=== PATIENT | female | born 1945 | race Caucasian/White ===

== ENCOUNTER 2017-06-30 09:47 | Outpatient (CLI) | payer MEDICARE, BC | END 2017-06-30 09:48 | disposition home or self-care (01) | LOC: BICMAMMO 09:47 | PROVIDERS: ATTEND Obstetrics & Gynecology | DX: Z12.31 Encounter for screening mammogram for malignant neoplasm of breast (principal); R92.1 Mammographic calcification found on diagnostic imaging of breast; Z80.3 Family history of malignant neoplasm of breast | CPT/HCPCS: 77063; 77067 ==

== ENCOUNTER 2017-09-13 10:20 | Outpatient (CLI) | payer MEDICARE, BC | END 2017-09-13 10:21 | disposition home or self-care (01) | LOC: BICMAMMO 10:20 | PROVIDERS: ATTEND Obstetrics & Gynecology | DX: Z13.820 Encounter for screening for osteoporosis (principal); M85.80 Other specified disorders of bone density and structure, unspecified site | CPT/HCPCS: 77080 ==

== ENCOUNTER 2018-01-11 13:08 | Outpatient (CLI) | payer MEDICARE, BC | END 2018-01-11 13:09 | disposition home or self-care (01) | PROVIDERS: ATTEND Internal Medicine | DX: I49.9 Cardiac arrhythmia, unspecified (principal) | CPT/HCPCS: 93225; 93226 ==

== ENCOUNTER 2018-07-03 09:05 | Outpatient (CLI) | payer MEDICARE, BC ==
--- NOTE | 2018-07-03 11:55 | MMO ---
Bilateral MAMMO Bilat Screen DDI+ANTONY. CLINICAL HISTORY: Patient is 72 years old and is seen for screening. The patient has the following family history of breast cancer: mother, at age 45. The patient has no personal history of cancer. The patient has a history of left Excisional Biopsy in 1980 - benign. VIEWS: The views performed were: bilateral craniocaudal with tomosynthesis and bilateral mediolateral oblique with tomosynthesis. FILMS COMPARED: The present examination has been compared to prior imaging studies performed at [facility] 01/03/2015, and at [facility] on 06/29/2016 and 06/30/2017. MAMMOGRAM FINDINGS: There are scattered fibroglandular densities. There are stable benign appearing calcifications seen in both breasts. There are also vascular calcifications. There are no suspicious masses, suspicious calcifications, or new areas of architectural distortion. IMPRESSION: THERE IS NO MAMMOGRAPHIC EVIDENCE OF MALIGNANCY. A ROUTINE FOLLOW-UP MAMMOGRAM IN 1 YEAR IS RECOMMENDED. THE RESULTS OF THIS EXAM WERE SENT TO THE PATIENT. ACR BI-RADS Category 2 - Benign finding MAMMOGRAPHY NOTE: 1. A negative mammogram report should not delay a biopsy if a dominant of clinically suspicious mass is present. 2. Approximately 10% to 15% of breast cancers are not detected by mammography. 3. Adenosis and dense breasts may obscure an underlying neoplasm.
== END 2018-07-03 09:06 | disposition home or self-care (01) ==
LOC: BICMAMMO 09:05
PROVIDERS: ATTEND Obstetrics & Gynecology
DX: Z12.31 Encounter for screening mammogram for malignant neoplasm of breast (principal); Z80.3 Family history of malignant neoplasm of breast
CPT/HCPCS: 77063; 77067

== ENCOUNTER 2018-09-08 10:25 | Emergency (ER) | payer MEDICARE, BC ==
--- NOTE | 2018-09-08 12:45 | RAD ---
LEFT WRIST THREE VIEWS: HISTORY: Left wrist pain, which began one week ago. FINDINGS: Patchy bony demineralization. Degenerative and osteoarthrosis changes. There is some trabecular irr egularity involving the hamate bone, which I favor to be just normal trabecular variation. Moderate negative ulnar variance. IMPRESSION: 1. Bony demineralization. 2. Moderate negative ulnar variance. 3. Mild degenerative changes. 4. No acute fracture or dislocation. POS: C
== END 2018-09-08 12:59 | disposition home or self-care (01) ==
LOC: ERS 10:25
DX: M19.032 Primary osteoarthritis, left wrist (principal); E03.9 Hypothyroidism, unspecified; D64.9 Anemia, unspecified; Z79.899 Other long term (current) drug therapy; Z79.82 Long term (current) use of aspirin

== ENCOUNTER 2018-09-15 14:47 | Outpatient (CLI) | payer MEDICARE, BC ==
--- NOTE | 2018-09-15 15:46 | BD ---
Exam: DEXA Bone Density 09/15/18 HISTORY: 72-year-old postmenopausal female for screening. COMPARISON: None. FINDINGS: Lumbar Spine: BMD (g/cm2) T-SCORE L1 0.914 -0.7 L2 1.066 0.3 L3 1.215 1.2 L4 1.138 0.7 L1-L4 1.082 0.3 Femoral Neck: 0.642 -1.9 Total proximal left Femur: 0.755 -1.5 Impression: Osteopenia. This patient has a ten year WHO fracture risk of a major osteoporotic fracture of 18% an d hip fracture of 4.6%. POS: CET
== END 2018-09-15 14:48 | disposition home or self-care (01) ==
LOC: BICMAMMO 14:47
PROVIDERS: ATTEND Nurse Practitioner Family
DX: M85.89 Other specified disorders of bone density and structure, multiple sites (principal); M19.90 Unspecified osteoarthritis, unspecified site; Z79.890 Hormone replacement therapy; Z79.52 Long term (current) use of systemic steroids
CPT/HCPCS: 77080

== ENCOUNTER 2019-03-02 10:40 | Emergency (ER) | payer MEDICARE, BC ==
[2019-03-02] MEDS ORDERED: Iopamidol-370 76% 500 ML 1 ML ONE (10:49)
[2019-03-02] MEDS ORDERED: Aspirin Chewable 81 MG TAB ONE (11:12)
[2019-03-02 11:20] LABS: #Lymphocytes 1.7 thou/uL (1.20-3.40); #Monocytes 0.7 thou/uL (0.11-0.59); #Neutrophils 6.3 thou/uL (1.40-6.50); %Basophils 0.3 % (0.0-1.0); %Eosinophils 0.1 % (0.0-10.0); %Lymphocytes 19.1 % (21.0-51.0); %Monocytes 8.1 % (0.0-10.0); %Neutrophils 72.4 % (42.0-75.0); Hemoglobin 12.7 g/dL (12.0-16.0); Mean Corpuscular HGB CONC 33.9 g/dL (32.0-36.0); Mean Corpuscular Hemoglobin 32.8 pg (27.0-31.0); Mean Corpuscular Volume 96.5 fL (78.0-98.0); Mean Platelet Volume 7.2 fL (7.4-10.4); Platelet Count 215 thou/uL (130-400); Red Blood Cell (RBC) Count 3.89 mill/uL (4.20-5.40); White Blood Cell (WBC) Count 8.7 thou/uL (4.8-10.8)
--- NOTE | 2019-03-02 11:20 | RAD ---
Exam: Chest one view HISTORY:Chest pain Comparison: 09/07/2009 FINDINGS: Cardiac silhouette: Normal Aorta: Atherosclerosis of the aortic knob Pulmonary vessels: Normal Costophrenic angles: Clear LUNGS: Chronic changes lung parenchyma, without consolidation or mass. Stable bilateral apical pleura l and parenchymal changes Pneumothorax: None Osseous abnormalities: None IMPRESSION: 1. Atherosclerosis aorta 2. Chronic lung parenchymal changes 3. No acute cardiopulmonary process.
[2019-03-02] MEDS ORDERED: methylPREDNISolone Sod Succ/PF 125 MG/2 ML VIAL ONE (11:35)
[2019-03-02] MEDS ORDERED: Famotidine/PF 20 mg/2ml Vial ONE (11:35)
[2019-03-02] MEDS ORDERED: diphenhydrAMINE 50 MG/ML VIAL ONE (11:35)
[2019-03-02 12:01] LABS: ALT (SGPT) 16 U/L (8-55); AST (SGOT) 18 U/L (5-34); Albumin 4.1 g/dL (3.4-4.8); Alkaline Phosphatase 106 U/L (40-110); Anion Gap 11 mmol/L (10-20); BUN (Urea Nitrogen) 16 mg/dL (9.8-20.1); Bilirubin, Total 0.6 mg/dL (0.2-1.2); CK (CPK) 37 U/L (29-168); Calc. Creatinine Clearance 0 mL/min (70-130); Calcium 9.6 mg/dL (7.8-10.44); Carbon Dioxide 29 mmol/L (23-31); Chloride 105 mmol/L (98-107); Estimated GFR-MDRD 66; Globulin 2.1 g/dL (2.4-3.5); Glucose 95 mg/dL (83-110); Potassium 4.2 mmol/L (3.5-5.1); Protein, Total 6.2 g/dL (6.0-8.3); Sodium 141 mmol/L (136-145)
--- NOTE | 2019-03-02 13:21 | CT ---
CT PULMONARY ANGIOGRAM WITH IV CONTRAST AND 3D MIP RECONSTRUCTIONS: DATE: 03/02/2019. PROVIDED CLINICAL HISTORY: Shortness of breath. FINDINGS: Comparison is made with the study dated 08/11/2010. There is no evidence for a central or segmental pulmonary embolus. Vascular calcification including coronary calcium is demonstrated. The heart, pericardium, and great vessels demonstrate an otherwise unremarkable CT appearance. There are scattered areas of peripheral subpleural interstitial thickening, predominating at the lung bases. Some of the basilar changes could be partially on the basis of subsegmental atelectasis. Th ere is no focal consolidation or nodule evident. The airway appears patent and of normal caliber. B iapical pleural parenchymal scarring changes are seen. No pleural fluid or pneumothorax apparent. The visualized portions of the upper abdomen demonstrate no acute process. The osseous structures demonstrate no concerning lytic or blastic lesions. IMPRESSION: 1. No evidence for central or segmental pulmonary embolus. 2. Peripheral subpleural interstitial thickening may reflect changes of pulmonary fibrosis. Conside r nonemergent pulmonary consultation. POS: OFF
== END 2019-03-02 14:30 | disposition home or self-care (01) ==
LOC: ERS 10:40
DX: J84.10 Pulmonary fibrosis, unspecified (principal); E03.9 Hypothyroidism, unspecified; Z79.899 Other long term (current) drug therapy
CPT/HCPCS: 36415; 71045; 71275; 80053; 82550; 84484; 85025; 93005; 96361; 96374; 96375; J1200; J2930; S0028

== ENCOUNTER 2019-09-19 09:25 | Emergency (ER) | payer MEDICARE, BC ==
[2019-09-19] MEDS ORDERED: Lorazepam 2 MG/ML VIAL ONE (09:50)
[2019-09-19] MEDS ORDERED: Fentanyl 100 MCG/2 ML VIAL ONE (09:50)
[2019-09-19] MEDS ORDERED: Ketorolac Tromethamine 30 MG/ML VIAL ONE (09:50)
[2019-09-19 10:19] LABS: #Lymphocytes 0.9 thou/uL (1.20-3.40); #Monocytes 0.5 thou/uL (0.11-0.59); #Neutrophils 9.6 thou/uL (1.40-6.50); %Basophils 0.2 % (0.0-1.0); %Eosinophils 0.3 % (0.0-10.0); %Lymphocytes 8.5 % (21.0-51.0); %Monocytes 4.7 % (0.0-10.0); %Neutrophils 86.3 % (42.0-75.0); Hemoglobin 11.7 g/dL (12.0-16.0); Mean Corpuscular Hemoglobin 31.7 pg (27.0-31.0); Mean Platelet Volume 7.4 fL (7.4-10.4); Platelet Count 248 thou/uL (130-400); RBC Distribution Width 13.4 % (11.5-14.5); Red Blood Cell (RBC) Count 3.69 mill/uL (4.20-5.40); White Blood Cell (WBC) Count 11.1 thou/uL (4.8-10.8)
[2019-09-19 10:44] LABS: ALT (SGPT) 23 U/L (8-55); AST (SGOT) 26 U/L (5-34); Albumin 3.9 g/dL (3.4-4.8); Alkaline Phosphatase 106 U/L (40-110); Anion Gap 13 mmol/L (10-20); BUN (Urea Nitrogen) 10 mg/dL (9.8-20.1); Bilirubin, Total 0.6 mg/dL (0.2-1.2); CRP (Inflammatory) 2.53 mg/dL (= or < 0.5); Calc. Creatinine Clearance 0 mL/min (70-130); Carbon Dioxide 25 mmol/L (23-31); Chloride 105 mmol/L (98-107); Estimated GFR-MDRD 83; Globulin 2.5 g/dL (2.4-3.5); Glucose 127 mg/dL (83-110); Potassium 3.1 mmol/L (3.5-5.1); Protein, Total 6.4 g/dL (6.0-8.3); Sodium 140 mmol/L (136-145)
--- NOTE | 2019-09-19 10:55 | CT ---
CT OF THE LUMBAR SPINE WITHOUT CONTRAST: INDICATION: History of low back pain with a history of scoliosis. COMPARISON: MRI of the lumbar spine dated 02/04/2015 from [facility]. FINDINGS: There is prominent levoscoliosis centered at L2-3. There is stable lateral subluxation of L3 on L4. There is a superior end plate compression fracture of L2 on the left aspect of the vertebral body wi th 6 mm of end plate depression that is new. There is superior and central end plate compression fra cture of T12. This is new from the prior exam. There is severe multilevel spondylosis. Visualized r etroperitoneum demonstrates no acute abnormality. IMPRESSION: 1. Acute superior end plate compression fracture of L2 and acute superior and inferior end plate com pression fracture of T12 with only mild loss of height centrally. 2. Diffuse osteopenia. 3. Severe multilevel spondylosis of the lumbar spine with prominent levoscoliosis. POS: [facility]
[2019-09-19 12:25] LABS: Bilirubin Negative (Negative); Blood, Urine Negative (Negative); Clarity Clear (Clear); Glucose, Urine (Dipstick) Normal (Negative); Leukocyte Negative Leu/uL (Negative); Nitrite Negative (Negative); Protein, Urine (Dipstick) Negative (Neg-Trace); Urobilinogen Normal mg/dL (Less than 2)
== END 2019-09-19 18:18 | disposition home or self-care (01) ==
LOC: ERS 09:25
DX: S22.089A Unspecified fracture of T11-T12 vertebra, initial encounter for closed fracture (principal); S32.019A Unspecified fracture of first lumbar vertebra, initial encounter for closed fracture; S32.029A Unspecified fracture of second lumbar vertebra, initial encounter for closed fracture; E03.9 Hypothyroidism, unspecified; E27.1 Primary adrenocortical insufficiency; D51.0 Vitamin B12 deficiency anemia due to intrinsic factor deficiency; Z79.899 Other long term (current) drug therapy; Z79.82 Long term (current) use of aspirin; X58.XXXA Exposure to other specified factors, initial encounter
CPT/HCPCS: 72131; 80053; 81003; 85025; 85652; 86140; 96374; 96375; J1885; J2060; J3010

== ENCOUNTER 2019-10-19 08:30 | Inpatient (IN) | payer MEDICARE, BC, OTHER ==
[2019-10-19 09:12] LABS: #Lymphocytes 2.2 thou/uL (1.20-3.40); #Monocytes 0.9 thou/uL (0.11-0.59); #Neutrophils 7.9 thou/uL (1.40-6.50); %Basophils 0.3 % (0.0-1.0); %Eosinophils 0.1 % (0.0-10.0); %Monocytes 8.4 % (0.0-10.0); %Neutrophils 71.3 % (42.0-75.0); Hemoglobin 14.3 g/dL (12.0-16.0); Mean Corpuscular HGB CONC 33.1 g/dL (32.0-36.0); Mean Corpuscular Hemoglobin 31.4 pg (27.0-31.0); Mean Corpuscular Volume 94.9 fL (78.0-98.0); Mean Platelet Volume 7.4 fL (7.4-10.4); Platelet Count 197 thou/uL (130-400); RBC Distribution Width 13.5 % (11.5-14.5); Red Blood Cell (RBC) Count 4.54 mill/uL (4.20-5.40); White Blood Cell (WBC) Count 11.1 thou/uL (4.8-10.8)
[2019-10-19 09:25] LABS: ALT (SGPT) 35 U/L (8-55); AST (SGOT) 22 U/L (5-34); Albumin 4.3 g/dL (3.4-4.8); Alkaline Phosphatase 113 U/L (40-110); Anion Gap 16 mmol/L (10-20); BUN (Urea Nitrogen) 20 mg/dL (9.8-20.1); Bilirubin, Total 0.7 mg/dL (0.2-1.2); CK (CPK) 15 U/L (29-168); Calc. Creatinine Clearance 0 mL/min (70-130); Calcium 9.7 mg/dL (7.8-10.44); Carbon Dioxide 21 mmol/L (23-31); Chloride 100 mmol/L (98-107); Estimated GFR-MDRD 66; Globulin 2.5 g/dL (2.4-3.5); Glucose 117 mg/dL (83-110); Potassium 3.8 mmol/L (3.5-5.1); Protein, Total 6.8 g/dL (6.0-8.3); Sodium 133 mmol/L (136-145)
--- NOTE | 2019-10-19 09:26 | RAD ---
SINGLE VIEW CHEST: Date: 10/19/2019 INDICATION: History of chest pain and shortness of breath. COMPARISON: Prior exam dated 01/01/2019. FINDINGS: There is stable mild cardiomegaly. There is chronic interstitial thickening likely related to underly ing COPD. There is pleural parenchymal scarring involving the lung apices. No acute osseous abnormali ty is evident. IMPRESSION: 1. COPD change. 2. Stable cardiomegaly. POS: [facility]
[2019-10-19] MEDS ORDERED: Aspirin Chewable 81 MG TAB ONE (10:13)
[2019-10-19] MEDS ORDERED: Morphine 4 MG/ML VIAL ONE (11:11)
[2019-10-19] MEDS ORDERED: Iopamidol-370 76% 500 ML 1 ML ONE (11:34)
--- NOTE | 2019-10-19 12:00 | CT ---
CTA Angio Chest W WO Con History: Chest pain Comparison: CT angiogram chest February 2019 Findings: CT angiogram of the chest was performed after the intravenous ministration of contrast. 3-D rendering provided. There is embolism of the distal right main pulmonary artery extending into the segmental branches of the right anterior superior segment as well as the right lower lobe posterior basal, anterobasal and lateral basal segments. Fat-containing paraesophageal hernia. No significant pericardial fluid. Limited evaluation of the upper abdomen is unremarkable. Biapical pleural-parenchymal scarring is similar with traction bronchiectasis. No pneumothorax. No ef fusion. Peripheral basilar reticulation in the lower lobes. Complete burst fracture of T12 with 40% anterior height loss, 30% posterior height loss, and retropul ashu posterior superior endplate 4 mm and posterior inferior endplate 3 mm. Impression: 1. Distal right main pulmonary artery pulmonary embolism extending into segmental branches of the rig ht upper and lower lobes. No evidence for right heart strain. 2. Conversion of the T12 fracture into a complete burst fracture with retropulsion as described. 3. Early pulmonary fibrosis. Dr. Moon notified of findings via telephone at 11:55 AM.
--- NOTE | 2019-10-19 12:34 | PDOC.HHP ---
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 Her work-up in the emergency room was consistent with T12 and L2 compression fractures. She was sent to inpatient rehabilitation from the emergency room. 2 weeks later she was discharged home. Post discharge patient has been feeling generally weak and fatigued. She has not been moving around much due to back pain is also. She contacted her primary care physician Dr. MCKENZIE who started her on high-dose steroid for possible addisonian crisis. Last night, patient had chest discomfort that was moderate to severe in intensity lasting for approximately 1 hour. The pain radiated to her jaw. She denies any aggravating or relieving factor. No nausea, vomiting, diaphoresis, fever, chills, palpitations syncope or lightheadedness reported. Patient denies any lower extremity tenderness. She had some leg swelling earlier this month that has improved. This morning when she woke up she got concerned and presented to the emergency room. In the emergency room her CT angiogram of the chest was consistent with distal right main pulmonary artery embolism extending into segmental branches of the right upper and lower lobes. She received aspirin with 1 mg/kg Lovenox in the emergency room. ED Course: VITAL SIGNS TueOct 19, 2019 08:40 DULCE Mello, Summer BP: 147/84 (Sitting), Pulse: 84 (Regular), Resp: 20, Temp: 97.8 (Oral), Pain: 0 , O2 sat: 98 on (Room Air), Time: 10/19/2019 08:40. VITAL SIGNS TueOct 19, 2019 10:25 LEANDRA Claros Kelsey BP: 145/76, Pulse: 76, Resp: 20, Pain: 0, O2 sat: 98, Time: 10/19/2019 10:25. VITAL SIGNS TueOct 19, 2019 12:07 LEANDRA Claros Kelsey BP: 156/79, Pulse: 75, Resp: 22, Pain: 0, O2 sat: 99 on (Room Air), Time: 2019 12:07 MEDICATION ADMINISTRATION SUMMARY TueOct 19, 2019 12:28 Drug Name Dose Ordered Route Status Time enoxaparin 85 mg Subcutaneous Ordered 12:18 10/19/2019 morphine (PF) injection 4 mg IV Push Given 11:15 10/19/2019 *Normal Saline 1 L IV Fluid Infusion Given 10:22 10/19/2019 *Adult Aspirin 324 mg Oral Given 10:10/19/2019 Hospitalist ROS - Review of Systems Respiratory: denies: cough, dry, shortness of breath, hemoptysis, SOB with excertion, pleuritic pain, sputum, wheezing, other Cardiovascular: reports: chest pain. denies: palpitations, orthopnea, paroxysmal noc. dyspnea, edema, light headedness, other Gastrointestinal: denies: nausea, vomiting, abdominal pain, diarrhea, constipation, melena, hematochezia, other All other systems reviewed; all pertinent +/- noted in HPI/Subj - Medication Medications: Per ER report Florinef 0.1mg daily predniSONE 7.5 mg/day (this week high dose for possible Adrenal crisis) Patient Dose: As Needed. promethazine oral TABLET : Strength - 12.5 mg : ORAL Patient Dose: As Needed. predniSONE TABLET : Strength - 2.5 mg : ORAL Patient Dose: once a day (in the evening). cyanocobalamin (vit B-12) injection SYRINGE (ML) : Strength - 1,000 mcg/mL : INJECTION Patient Dose: 1 mL Intramuscular.every 2 weeks. Aspir-81 TABLET, DELAYED RELEASE (ENTERIC COATED) : Strength - 81 mg : ORAL Patient Dose: once a day. calcium TABLET : Strength - 500 mg : ORAL Patient Dose: 800 mg Oral once a day. loperamide TABLET : Strength - 2 mg : ORAL Patient Dose: once a day (in the morning).1/2 tab in the evening. Vitamin D3 CAPSULE : Strength - 1,000 unit : ORAL Patient Dose: 1500 units Oral once a day. Flexeril 10 mg : Strength - TABLET : ORAL Patient Dose: Oral.Flexeril 10mg po tid prn. Tylenol-Codeine #3 Hospitalist History - Past Medical History Other Medical History: MEDICAL HISTORY PE 2009 - completed Rx, Ancelmo's disease, hypothyroidism, Pernicious anemia, TB -in 1971, Pulmonary fibrosis, T12 AND L2 FX with recent stay at in rehab SURGICAL HISTORY Cardiac cath, tonsillectomy ALLERGIES NKDA SOCIAL HISTORY Patient denies alcohol use, Patient denies drug use, Patient has no smoking history. Lives alone. Full code. DPEriberto Gallagher FAMILY HISTORY No premature CAD or family history of PE - Exam General Appearance: NAD Eye: PERRL, anicteric sclera Neck: supple, symmetric, no JVD, no thyromegaly Heart: RRR, no gallops, no rubs, normal peripheral pulses Respiratory: CTAB, no wheezes, no rales, no ronchi Gastrointestinal: soft, non-tender, non-distended, normal bowel sounds, no guarding, no rigidity Extremities: no cyanosis, no clubbing, no edema Extremities - other findings: No calf tenderness Neurological: cranial nerve grossly intact, normal sensation to touch, no weakness, no focal deficits Musculoskeletal: normal tone, normal strength Psychiatric: normal affect, A&O x 3 Hospitalist Results - Labs Result Diagrams: 10/19/19 08:53 10/19/19 08:53 Lab results: WBC 11.1 thou/uL (4.8-10.8) H 10/19/19 08:53 Hgb 14.3 g/dL (12.0-16.0) 10/19/19 08:53 Hct 43.1 % (36.0-47.0) 10/19/19 08:53 MCV 94.9 fL (78.0-98.0) 10/19/19 08:53 Plt Count 197 thou/uL (130-400) 10/19/19 08:53 Neutrophils % 71.3 % (42.0-75.0) 10/19/19 08:53 Sodium 133 mmol/L (136-145) L 10/19/19 08:53 Potassium 3.8 mmol/L (3.5-5.1) 10/19/19 08:53 Chloride 100 mmol/L (98-107) 10/19/19 08:53 Carbon Dioxide 21 mmol/L (23-31) L 10/19/19 08:53 BUN 20 mg/dL (9.8-20.1) 10/19/19 08:53 Creatinine 0.84 mg/dL (0.6-1.1) 10/19/19 08:53 Glucose 117 mg/dL (83-110) H 10/19/19 08:53 Calcium 9.7 mg/dL (7.8-10.44) 10/19/19 08:53 Total Bilirubin 0.7 mg/dL (0.2-1.2) 10/19/19 08:53 AST 22 U/L (5-34) 10/19/19 08:53 ALT 35 U/L (8-55) 10/19/19 08:53 Alkaline Phosphatase 113 U/L (40-110) H 10/19/19 08:53 Creatine Kinase 15 U/L (29-168) L 10/19/19 08:53 Troponin I 0.020 ng/mL (< 0.028) 10/19/19 08:53 B-Natriuretic Peptide 27.7 pg/mL (0-100) 10/19/19 08:53 Serum Total Protein 6.8 g/dL (6.0-8.3) 10/19/19 08:53 Albumin 4.3 g/dL (3.4-4.8) 10/19/19 08:53 - EKG Interpretation EKG: Sinus rhythm with right bundle branch block and left anterior fascicular block reviewed by me - Radiology Interpretation CT scan - chest Status: image reviewed by me Additional Comment: Pulmonary embolism as discussed above US - venous Status: report reviewed by me Additional Comment: Right popliteal vein DVT Hospitalist H&P A/P - Plan Plan: Impression: Acute pulmonary embolism with right popliteal vein DVTprobably due to recent immobilization. Patient denies any active cancer. Webster's disease with recent addisonian crisis on high-dose prednisone Hypothyroidism Pernicious anemia on biweekly vitamin B12 injections Pulmonary fibrosis Recent T12 and L2 lumbar fracture Obesity Hyponatremia CKD stage II Plan: Patient will be monitored on the telemetry unit. She will be started on 1 mg/ kg Lovenox twice daily. She denies any history of bleeding. She understands the risk associated with anticoagulation. Will also resume prednisone for addisonian crisis per patient's primary care physician. Resume levothyroxine. Echocardiogram will be obtained. Will recheck labs in a.m. Pulmonary consultation. Serial troponins. Patient understands above plan of care
[2019-10-19] MEDS ORDERED: Ondansetron PF 4 MG/2 ML Vial IVP PRN (12:35)
[2019-10-19] MEDS ORDERED: Calcium Carbonate 500 MG ChewTAB PO PRN (12:35)
[2019-10-19] MEDS ORDERED: Ondansetron ODT 4 MG TAB PO PRN (12:35)
[2019-10-19] MEDS ORDERED: Nitroglycerin 0.4 MG TAB (25 Tab Bottle) PO PRN (12:38)
[2019-10-19] MEDS ORDERED: Sodium Chloride 0.9% 1,000 ML IV SCH (12:45)
[2019-10-19] MEDS ORDERED: Enoxaparin Sodium 80 MG/0.8 ML SYRINGE ONE (13:01)
--- NOTE | 2019-10-19 13:35 | ULT ---
ULTRASOUND DOPPLER DUPLEX VENOUS BILATERAL LOWER EXTREMITIES: DATE: 10/19/2019 HISTORY: 73-year-old female with pulmonary thromboembolism. Search for source. TECHNIQUE: Grayscale, color-flow, and spectral analysis, of the bilateral common femoral, profunda femoral, grea ter saphenous, femoral, popliteal, and posterior tibial, veins. FINDINGS: There is an approximately 4.5 x 1.5 x 2.5 cm cystic lesion in left popliteal fossa. There is thrombus causing incomplete compressibility in the right popliteal vein. There is some blood flow in this vein. There is no DVT in the rest of the right lower extremity veins, or in any of the left lower extremity veins. IMPRESSION: 1) deep venous thrombosis identified in the right popliteal vein. 2) left Uriarte's cyst
[2019-10-19 14:40] LABS: INR-International Normal Ratio 1.1; PTT 27.9 sec (22.9-36.1)
[2019-10-19] MEDS ORDERED: HYDROcodone/Acetaminophen 5/325 mg Tablet PO PRN (14:52)
[2019-10-19] MEDS ORDERED: traMADol HCl 50 MG TAB PO PRN (14:52)
[2019-10-19 14:53] LABS: Troponin I 0.016 ng/mL (< 0.028)
[2019-10-19] MEDS ORDERED: Loperamide HCl 2 MG CAP PO PRN (14:55)
[2019-10-19] MEDS ORDERED: Cyanocobalamin 1000 MCG/ML VIAL IM SCH (15:00)
[2019-10-19] MEDS ORDERED: predniSONE 20 MG TAB PO SCH (17:00)
[2019-10-19 17:41] LABS: Troponin I 0.015 ng/mL (< 0.028)
[2019-10-19 20:50] VITALS: BMI 31.6
[2019-10-19] MEDS ORDERED: Famotidine 20 MG TAB PO SCH (21:00)
[2019-10-19] MEDS: Calcium Carbonate 600 MG + Vit D TAB PO SCH (21:08)
[2019-10-19] MEDS ORDERED: Enoxaparin Sodium 80 MG/0.8 ML SYRINGE SC SCH (23:00)
[2019-10-20 04:33] LABS: #Lymphocytes 1.2 thou/uL (1.20-3.40); #Monocytes 0.6 thou/uL (0.11-0.59); #Neutrophils 6.8 thou/uL (1.40-6.50); %Eosinophils 0.1 % (0.0-10.0); %Lymphocytes 14.2 % (21.0-51.0); %Monocytes 7.1 % (0.0-10.0); %Neutrophils 78.6 % (42.0-75.0); Hemoglobin 12.5 g/dL (12.0-16.0); Mean Corpuscular HGB CONC 33.9 g/dL (32.0-36.0); Mean Corpuscular Hemoglobin 32.9 pg (27.0-31.0); Mean Corpuscular Volume 96.9 fL (78.0-98.0); Mean Platelet Volume 7.1 fL (7.4-10.4); Platelet Count 159 thou/uL (130-400); RBC Distribution Width 13.5 % (11.5-14.5); White Blood Cell (WBC) Count 8.7 thou/uL (4.8-10.8)
[2019-10-20 04:55] LABS: Anion Gap 12 mmol/L (10-20); BUN (Urea Nitrogen) 17 mg/dL (9.8-20.1); Calc. Creatinine Clearance 88 mL/min (70-130); Calcium 8.8 mg/dL (7.8-10.44); Carbon Dioxide 21 mmol/L (23-31); Chloride 106 mmol/L (98-107); Estimated GFR-MDRD 78; Glucose 106 mg/dL (83-110); Potassium 4.4 mmol/L (3.5-5.1); Sodium 135 mmol/L (136-145)
[2019-10-20] MEDS: Levothyroxine Sodium 88 MCG TAB PO SCH (06:05)
[2019-10-20] MEDS: Calcium Carbonate 600 MG + Vit D TAB PO SCH ×2 (08:57→17:59)
[2019-10-20] MEDS: predniSONE 20 MG TAB PO SCH (09:00)
[2019-10-20] MEDS: Enoxaparin Sodium 80 MG/0.8 ML SYRINGE SC SCH ×2 (09:00→20:30)
[2019-10-20 15:33] LABS: SARS-CoV-2 MS2 Positive; SARS-CoV-2 N Gene Negative; SARS-CoV-2 S Gene Negative; SARS-CoV-2 by NAA Not Detected (NotDetected); SARS-CoV-2 orf1ab Negative
--- NOTE | 2019-10-20 15:42 | PDOC.HOSPP ---
- Subjective Encounter Date: 10/20/19 Encounter Time: 11:45 Subjective: Patient seen and examined for pulmonary embolism with deep venous thrombosis. Denies any bleeding. Short of breath on exertion with physical therapy. Denies any other complaints. - Objective Vital Signs & Weight: Vital Signs (12 hours) Temp Pulse Pulse Resp BP BP BP 10/20/19 12:46 98.4 F 84 18 140/68 10/20/19 11:07 72 154/69 H 10/20/19 08:57 97.7 F 79 18 137/62 10/20/19 05:48 97.5 F L 72 18 154/69 H Pulse Ox Pulse Ox 10/20/19 12:46 96 10/20/19 11:07 96 10/20/19 08:57 96 10/20/19 05:48 96 Weight Admit Weight 184 lb Weight 184 lb 5 oz I&O: 10/19/19 10/20/19 10/21/19 06:59 06:59 06:59 Intake Total 240 Balance 240 Result Diagrams: 10/20/19 04:05 10/20/19 04:04 EKG Reviewed by me: Yes (Tele SR) Hospitalist ROS - Review of Systems Respiratory: reports: SOB with excertion. denies: cough, dry, shortness of breath, hemoptysis, pleuritic pain, sputum, wheezing, other Cardiovascular: denies: chest pain, palpitations, orthopnea, paroxysmal noc. dyspnea, edema, light headedness, other - Medication Medications: Active Medications Generic Name Dose Route Start Last Admin Trade Name Freq PRN Reason Stop Dose Admin Calcium/Vitamin D 1 tab 10/19/19 17:00 10/20/19 08:57 Caltrate 600 + Vit D PO Not Given BID- GALINDO Enoxaparin Sodium 80 mg 10/20/19 09:00 10/20/19 09:00 Lovenox SC 80 mg 0900,2100 GALINDO Administration Levothyroxine Sodium 88 mcg 10/20/19 06:00 10/20/19 06:05 Synthroid PO 88 mcg 0600 GALINDO Administration Pantoprazole Sodium 40 mg 10/19/19 21:00 10/19/19 21:07 Protonix PO 40 mg HS GALINDO Administration Prednisone 20 mg 10/20/19 08:00 10/20/19 09:00 Prednisone PO 20 mg QAM-WM GALINDO Administration - Exam General Appearance: NAD Neck: supple, no JVD Heart: no gallops, no rubs, normal peripheral pulses Respiratory: no wheezes, no ronchi Gastrointestinal: non-tender, normal bowel sounds Extremities: no cyanosis, no clubbing Neurological: no new deficit Hosp A/P - Plan PT/OT, DVT proph w/lovenox Acute pulmonary embolism with right popliteal vein DVT [place]'s disease with recent addisonian crisis on high-dose prednisone Hypothyroidism Pernicious anemia on biweekly vitamin B12 injections Pulmonary fibrosis Recent T12 and L2 lumbar fracture - Pt has TLSO brace Obesity Hyponatremia CKD stage II Plan: Cont 1 mg/kg Lovenox twice daily. Cont Prednisone for addisonian crisis per patient's primary care physician. Cont levothyroxine Await Echocardiogram Pulmonary consultation Serial troponins negative Continue other current medications as above
--- NOTE | 2019-10-20 15:55 | CON ---
DATE OF CONSULTATION: 10/20/2019 HISTORY OF PRESENT ILLNESS: Balbir Mckeon is a 73-year-old female, followed by Dr. Meyers for pulmonary fibrosis, she says. She presented with shortness of breath. She recently was found to have a T-spine and lumbar spine compression fracture, for which she is wearing a brace. She subsequently was found to have evidence of thromboembolic disease on CT angiogram. She subsequently has been admitted. PAST MEDICAL HISTORY: 1. Remarkable obviously for osteoporosis. 2. Pulmonary fibrosis. 3. History of scoliosis. 4. History of Ancelmo disease. 5. History of a gastric biopsy in April, showing no Helicobacter. 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 6. History of pulmonary function tests in August, showing an FEV1 and FVC that were normal, total lung capacity was normal at 4.12 L. Diffusion was decreased, partially corrected for volumes. FAMILY HISTORY: Negative for lung disease in early age. SOCIAL HISTORY: She is a nonsmoker and nondrinker. ALLERGIES: SHE REPORTS SULFA, STREPTOMYCIN, AND IODINE ALLERGIES. REVIEW OF SYSTEMS: Ten points otherwise negative. She says she is feeling better than she felt yesterday. PHYSICAL EXAMINATION: VITAL SIGNS: She is afebrile. Heart rate is 84, respiratory rate is 18, oximetry is 96 on room air, blood pressure 140/68. HEENT: Pupils are equal. Sclerae are anicteric. GENERAL: She appears younger than her age. NECK: Supple. No lymphadenopathy. LUNGS: Remarkable for very fine crackles in both lung bases. HEART: Regular rhythm. S1 and S2 are normal. ABDOMEN: Soft and nontender. EXTREMITIES: Without clubbing, cyanosis, or edema. LABORATORY DATA: White count 8.7, hemoglobin 12.5, platelets 159. Sodium 135, potassium 4.4, chloride 106, bicarb 21, BUN 17, creatinine 0.73. Coags are normal. COVID screen was not done on admission. IMPRESSION: Thromboembolic disease. PLAN: Continue anticoagulation. Probably in the morning if she is stable, then switch her to p.o. anticoagulants. This is a 50-minute consult, 50% of the time spent on the unit, coordinating care. Job ID: [id number] [facility]
[2019-10-20] MEDS: predniSONE 5 MG TAB PO SCH (17:59)
[2019-10-20] MEDS: Cyclobenzaprine 10 MG TAB PO PRN (18:07)
[2019-10-20] MEDS: Acetaminophen 325 MG TAB PO PRN (20:30)
[2019-10-21 04:02] LABS: #Basophils 0.1 thou/uL (0.0-0.2); #Lymphocytes 1.4 thou/uL (1.20-3.40); #Monocytes 0.6 thou/uL (0.11-0.59); #Neutrophils 6.4 thou/uL (1.40-6.50); %Basophils 1.5 % (0.0-1.0); %Eosinophils 0.2 % (0.0-10.0); %Lymphocytes 16.6 % (21.0-51.0); %Neutrophils 74.7 % (42.0-75.0); Hemoglobin 12.9 g/dL (12.0-16.0); Mean Corpuscular HGB CONC 32.4 g/dL (32.0-36.0); Mean Corpuscular Hemoglobin 31.1 pg (27.0-31.0); Mean Corpuscular Volume 95.8 fL (78.0-98.0); Mean Platelet Volume 7.9 fL (7.4-10.4); Platelet Count 190 thou/uL (130-400); RBC Distribution Width 13.6 % (11.5-14.5); Red Blood Cell (RBC) Count 4.15 mill/uL (4.20-5.40); White Blood Cell (WBC) Count 8.6 thou/uL (4.8-10.8)
[2019-10-21 04:30] LABS: Anion Gap 14 mmol/L (10-20); BUN (Urea Nitrogen) 14 mg/dL (9.8-20.1); Calc. Creatinine Clearance 89 mL/min (70-130); Calcium 9.3 mg/dL (7.8-10.44); Carbon Dioxide 20 mmol/L (23-31); Chloride 105 mmol/L (98-107); Estimated GFR-MDRD 79; Glucose 109 mg/dL (83-110); Potassium 4.4 mmol/L (3.5-5.1); Sodium 135 mmol/L (136-145)
[2019-10-21] MEDS: Levothyroxine Sodium 88 MCG TAB PO SCH (05:57)
[2019-10-21] MEDS: Calcium Carbonate 600 MG + Vit D TAB PO SCH ×2 (08:11→17:12)
[2019-10-21] MEDS: Enoxaparin Sodium 80 MG/0.8 ML SYRINGE SC SCH (08:11)
[2019-10-21] MEDS: Acetaminophen 325 MG TAB PO PRN ×2 (08:12→17:16)
[2019-10-21] MEDS: predniSONE 20 MG TAB PO SCH (08:12)
--- NOTE | 2019-10-21 13:28 | PDOC.HOSPP ---
- Subjective Encounter Date: 10/21/19 Encounter Time: 10:30 Subjective: Patient seen and examined for acute pulmonary embolism. Tolerating Lovenox 1 mg /kg. No bleeding reported. Shortness of breath improving. Symptomatically she feels much better. - Objective Vital Signs & Weight: Vital Signs (12 hours) Temp Pulse Resp BP BP Pulse Ox 10/21/19 12:00 98.3 F 77 20 157/76 H 10/21/19 08:00 98.5 F 89 20 142/73 H 96 10/21/19 05:40 99 10/21/19 03:50 97.7 F 63 18 141/67 H 99 Weight Admit Weight 184 lb Weight 184 lb 1.376 oz I&O: 10/20/19 10/21/19 10/22/19 06:59 06:59 06:59 Intake Total 240 1220 Balance 240 1220 Result Diagrams: 10/21/19 03:18 10/21/19 03:18 EKG Reviewed by me: Yes (Sinus rhythm on telemetry monitoring) Hospitalist ROS - Review of Systems Cardiovascular: denies: chest pain, palpitations, orthopnea, paroxysmal noc. dyspnea, edema, light headedness, other Gastrointestinal: denies: nausea, vomiting, abdominal pain, diarrhea, constipation, melena, hematochezia, other - Medication Medications: Active Medications Generic Name Dose Route Start Last Admin Trade Name Freq PRN Reason Stop Dose Admin Acetaminophen 650 mg 10/19/19 12:35 10/21/19 08:12 Tylenol PO 650 mg Q4H PRN Administration Headache/Fever/Mild Pain (1-3) Calcium/Vitamin D 1 tab 10/19/19 17:00 10/21/19 08:11 Caltrate 600 + Vit D PO Not Given BID- GALINDO Cyclobenzaprine HCl 5 mg 10/20/19 17:16 10/20/19 18:07 Flexeril PO 10/23/19 17:17 5 mg TID PRN Administration Muscle Spasm Levothyroxine Sodium 88 mcg 10/20/19 06:00 10/21/19 05:57 Synthroid PO 88 mcg 0600 GALINDO Administration Pantoprazole Sodium 40 mg 10/19/19 21:00 10/20/19 20:30 Protonix PO 40 mg HS GALINDO Administration Prednisone 20 mg 10/20/19 08:00 10/21/19 08:12 Prednisone PO 20 mg QAM-WM GALINDO Administration Prednisone 15 mg 10/20/19 17:00 10/20/19 17:59 Prednisone PO 10/21/19 17:01 15 mg 1700 GALINDO Administration - Exam General Appearance: NAD Neck: supple, no JVD Heart: no gallops, no rubs Respiratory: no rales, no ronchi Gastrointestinal: soft, no guarding, no rigidity Extremities: no cyanosis, no clubbing Hosp A/P - Plan Acute pulmonary embolism with right popliteal vein DVT [place]'s disease with recent addisonian crisis on high-dose prednisone Hypothyroidism Pernicious anemia on biweekly vitamin B12 injections Pulmonary fibrosis Recent T12 and L2 lumbar fracture - Pt has TLSO brace Obesity Hyponatremia CKD stage II Plan: 10/20 Change Lovenox to Eliquis. Patient understands the risk associated with Eliquis not limited to life-threatening bleeding. Will continue prednisone as prescribed by her primary care physician for addisonian crisis. Await echocardiogram. Continue other medications as above. 10/19 Cont 1 mg/kg Lovenox twice daily. Cont Prednisone for addisonian crisis per patient's primary care physician. Cont levothyroxine Await Echocardiogram Pulmonary consultation Serial troponins negative Continue other current medications as above
[2019-10-21] MEDS: predniSONE 5 MG TAB PO SCH (17:13)
--- NOTE | 2019-10-21 18:32 | PRG ---
DATE OF SERVICE: 10/21/2019 SUBJECTIVE: Balbir Mckeon has her brace off. She is not having any back pain. She feels well. OBJECTIVE: VITAL SIGNS: She is afebrile. Heart rate 77, respiratory rate 20, blood pressure 157/76. LUNGS: Clear. She is on room air. HEART: Regular rhythm. ABDOMEN: Soft. IMPRESSION: Pulmonary emboli. We would start Vidyaquis this evening. Hopefully, she can go home in the morning. Job ID: [id number]
[2019-10-21] MEDS: Apixaban 5 MG TAB PO SCH (20:37)
[2019-10-21] MEDS: Cyclobenzaprine 10 MG TAB PO PRN (20:41)
[2019-10-22 05:02] LABS: #Lymphocytes 1.6 thou/uL (1.20-3.40); #Monocytes 0.6 thou/uL (0.11-0.59); #Neutrophils 5.2 thou/uL (1.40-6.50); %Basophils 0.6 % (0.0-1.0); %Eosinophils 0.3 % (0.0-10.0); %Lymphocytes 21.1 % (21.0-51.0); %Monocytes 8.4 % (0.0-10.0); %Neutrophils 69.6 % (42.0-75.0); Mean Corpuscular HGB CONC 33.3 g/dL (32.0-36.0); Mean Corpuscular Hemoglobin 32.5 pg (27.0-31.0); Mean Corpuscular Volume 97.5 fL (78.0-98.0); Mean Platelet Volume 7.2 fL (7.4-10.4); Platelet Count 185 thou/uL (130-400); RBC Distribution Width 13.6 % (11.5-14.5); Red Blood Cell (RBC) Count 3.99 mill/uL (4.20-5.40); White Blood Cell (WBC) Count 7.4 thou/uL (4.8-10.8)
[2019-10-22 05:17] LABS: Anion Gap 11 mmol/L (10-20); BUN (Urea Nitrogen) 17 mg/dL (9.8-20.1); Calc. Creatinine Clearance 87 mL/min (70-130); Calcium 8.9 mg/dL (7.8-10.44); Carbon Dioxide 24 mmol/L (23-31); Chloride 104 mmol/L (98-107); Estimated GFR-MDRD 77; Glucose 108 mg/dL (83-110); Potassium 4.3 mmol/L (3.5-5.1); Sodium 135 mmol/L (136-145)
[2019-10-22] MEDS: Levothyroxine Sodium 88 MCG TAB PO SCH (06:30)
[2019-10-22 08:00] VITALS: BP 135/60; TEMP 96.1
[2019-10-22] MEDS: Apixaban 5 MG TAB PO SCH (08:01)
[2019-10-22] MEDS: predniSONE 20 MG TAB PO SCH (08:01)
[2019-10-22] MEDS: Calcium Carbonate 600 MG + Vit D TAB PO SCH (08:02)
--- NOTE | 2019-10-22 14:04 | PRG ---
DATE OF SERVICE: 10/22/2019 SUBJECTIVE: Balbir Mckeon had no complaints this morning. Her vital signs have been stable. She is stable on room air. She denies shortness of breath. OBJECTIVE: LUNGS: Clear. HEART: Regular rhythm. ABDOMEN: Soft. IMPRESSION: 1. Pulmonary emboli. 2. Pulmonary fibrosis. 3. Deconditioning. 4. History of lumbar spine and thoracic spine compression fractures recently. PLAN: She can be discharged home with loading dose of Eliquis and taper to the maintenance dose, and follow up with Dr. Meyers in 3 to 4 weeks. Job ID: [id number]
[2019-10-22] MEDS ORDERED: predniSONE 20 MG TAB PO SCH (17:00)
--- NOTE | 2019-10-22 19:01 | DIS ---
DATE OF ADMISSION: 10/19/2019 DATE OF DISCHARGE: 10/22/2019 DISCHARGE DISPOSITION: Home. FOLLOWUP: 1. Follow up with primary care physician, Dr. Jorge Goodwin in 1 week. 2. Follow up with Dr. Meyers in 3 to 4 weeks. DISCHARGE MEDICATIONS: 1. Eliquis 10 mg twice daily for 6 days followed by 5 mg b.i.d. 2. All other home medications were left unchanged. 3. The patient was advised to continue omeprazole at home. BRIEF HOSPITAL COURSE: The patient is a 73-year-old female with recent thoracic/lumbar compression fracture, presented to the hospital with chest discomfort. CT angiogram of the chest was consistent with right-sided pulmonary embolism. The patient was started on Lovenox that was transitioned to Eliquis. Echocardiogram has been done, report is pending at the time of discharge. The patient was also evaluated by Pulmonary, Dr. Arevalo. She was also found to have a DVT involving the right popliteal vein. The shortness of breath has significantly improved. She has been cleared by consultants for discharge. FINAL DIAGNOSES: 1. Acute pulmonary embolism with right leg deep venous thrombosis. 2. Recent addisonian crisis on high dose prednisone taper. 3. Hypothyroidism. 4. Pernicious anemia on biweekly vitamin B12 injection. 5. Pulmonary fibrosis. 6. Recent T12 and L2 lumbar fracture. The patient was recently admitted at inpatient rehabilitation. 7. Obesity with a BMI of 31.8. 8. Hyponatremia. 9. Chronic kidney disease stage 2. The patient understands the above plan of care. The patient denies any chest discomfort or shortness of breath on the day of discharge. Job ID: [id number]
[2019-10-24] MEDS ORDERED: predniSONE 5 MG TAB PO SCH (17:00)
== END 2019-10-22 12:05 | disposition home or self-care (01) | DRG 299 ==
LOC: ERS 08:30 → ERHOLD 12:35 → 2NO 20:21
PROVIDERS: ADMIT Internal Medicine; ATTEND Internal Medicine
DX: I82.491 Acute embolism and thrombosis of other specified deep vein of right lower extremity (principal); I26.99 Other pulmonary embolism without acute cor pulmonale; E87.1 Hypo-osmolality and hyponatremia; E03.9 Hypothyroidism, unspecified; N18.2 Chronic kidney disease, stage 2 (mild); I12.9 Hypertensive chronic kidney disease with stage 1 through stage 4 chronic kidney disease, or unspecified chronic kidney disease; D63.1 Anemia in chronic kidney disease; J84.10 Pulmonary fibrosis, unspecified; E66.9 Obesity, unspecified; K21.9 Gastro-esophageal reflux disease without esophagitis; M81.0 Age-related osteoporosis without current pathological fracture; Z68.31 Body mass index [BMI] 31.0-31.9, adult; Z88.2 Allergy status to sulfonamides; Z88.1 Allergy status to other antibiotic agents; Z91.013 Allergy to seafood
CPT/HCPCS: 36415; 71045; 71275; 80048; 80053; 82550; 83735; 83880; 84484; 85025; 85379; 85610; 85730; 87635; 93005; 93306; 93970; 94760; 96361; 96372; 96374; J1650; J2270; J3420; J7512; Q9967; U0003

== ENCOUNTER 2020-02-14 08:55 | Emergency (ER) | payer MEDICARE, BC ==
[2020-02-14] MEDS ORDERED: Morphine 4 MG/ML VIAL ONE (09:24)
--- NOTE | 2020-02-14 10:24 | CT ---
CT THORACIC SPINE WITHOUT CONTRAST: HISTORY: Back pain. FINDINGS: There is mild compression of the superior end plate of T11 vertebral body and severe compression of T 12 vertebral body. There is mild posterior retropulsion of T12. There is vacuum disk phenomenon not ed at T10-11, T11-12, and T12-L1 levels. Chronic parenchymal change is seen in the lungs bilaterally. POS: [facility]
== END 2020-02-14 10:56 | disposition home or self-care (01) ==
LOC: ERS 08:55
DX: M54.6 Pain in thoracic spine (principal); E03.9 Hypothyroidism, unspecified; D51.0 Vitamin B12 deficiency anemia due to intrinsic factor deficiency
CPT/HCPCS: 72128; 96372; J2270

== ENCOUNTER 2020-04-04 11:31 | Outpatient (CLI) | payer MEDICARE, BC ==
--- NOTE | 2020-04-04 13:13 | RAD ---
Frontal and lateral imaging of the thoracic spine: 04/04/2020 COMPARISON: Thoracic spine CT performed 02/14/2020 HISTORY: Thoracic spine fracture, history of pain, scoliosis, and possible fracture deformity FINDINGS: There is prominent scoliosis of the upper lumbar spine with apex to the right. Kyphotic thelma ure of the patient limits detailed assessment. On the lateral examination there is a severe anterior wedge compression fracture deformity which appe ars to represent the T12 level and appears stable when compared to the 02/14/2020 CT examination. There is a superior endplate fracture of T11 with approximately 20% loss of vertebral body height ant eriorly, which appears stable when compared to the prior CT. Anterior wedge compression deformities with moderate anterior loss of vertebral body height noted at the T7, T8, and T9 levels, all 3 of which appear new when compared to the 02/14/2020 exam. The upper thoracic spine and the cervicothoracic junction is not well assessed on this examination second will to position and body habitus. IMPRESSION: Findings suggesting interval development of multiple anterior wedge compression fractures with moderate loss of vertebral body height anteriorly including the T7, T8, and T9 levels. Correlation with CT would be beneficial for full assessment. CODE T
== END 2020-04-04 11:32 | disposition home or self-care (01) ==
LOC: BICRAD 11:31
PROVIDERS: ATTEND Surgery
DX: S22.060G Wedge compression fracture of T7-T8 vertebra, subsequent encounter for fracture with delayed healing (principal); S22.070A Wedge compression fracture of T9-T10 vertebra, initial encounter for closed fracture; R29.890 Loss of height
CPT/HCPCS: 72070

== ENCOUNTER 2020-05-14 10:19 | Outpatient (CLI) | payer MEDICARE, BC ==
--- NOTE | 2020-05-14 11:23 | RAD ---
Frontal, lateral, and swimmer's lateral radiographs of the thoracic spine: 05/14/2020 COMPARISON: 04/04/2020 HISTORY: Wedge compression fracture of thoracic spine. FINDINGS: Patient body habitus, severe scoliosis, and marked kyphosis limits detailed assessment of t he thoracic spine. There is multilevel disc space narrowing with degenerative endplate change and anterior osteophyte fo rmation within the lower cervical spine, not well evaluated on this exam. What appears to represent the T12 vertebral body demonstrates a severe anterior wedge compression def ormity, grossly unchanged. The T11 vertebral body demonstrates a superior endplate/anterior wedge compression fracture with approximately 30% loss of vertebral body height anteriorly, similar when co mpared to prior imaging. Stable moderate anterior wedge compression fractures of T7, T8, and T9 noted. No obvious anterolisthe sis or retrolisthesis. IMPRESSION: Multiple thoracic spine fractures, not optimally assessed secondary to patient positionin g and body habitus, grossly unchanged when compared to 04/04/2020.
== END 2020-05-14 10:20 | disposition home or self-care (01) ==
LOC: BICRAD 10:19
PROVIDERS: ATTEND Surgery
DX: S22.060G Wedge compression fracture of T7-T8 vertebra, subsequent encounter for fracture with delayed healing (principal); S22.070A Wedge compression fracture of T9-T10 vertebra, initial encounter for closed fracture
CPT/HCPCS: 72072

== ENCOUNTER 2020-07-11 11:32 | Emergency (ER) | payer MEDICARE, BC ==
[2020-07-11 12:04] LABS: Bilirubin Small (Negative); Blood, Urine Negative (Negative); Glucose, Urine (Dipstick) Negative (Negative); Ketone, Urine Negative (Negative); Leukocyte Negative (Negative); Nitrite Negative (Negative); Protein, Urine (Dipstick) Negative (Neg-Trace); Urobilinogen 0.2 mg/dL (Less than 2)
[2020-07-11 12:23] LABS: Clarity Clear (Clear)
[2020-07-11 12:24] LABS: Bacteria/HPF None Seen HPF (None Seen); Calcium Oxalate Crystals Rare HPF (None Seen); RBC/HPF None Seen HPF (0-3); Squamous Epithelial None Seen HPF (0-3); WBC/HPF 0-3 HPF (0-3)
[2020-07-11 12:57] LABS: #Basophils 0.1 thou/uL (0.0-0.2); #Lymphocytes 1.7 thou/uL (1.20-3.40); #Monocytes 0.5 thou/uL (0.11-0.59); #Neutrophils 6.6 thou/uL (1.40-6.50); %Basophils 0.6 % (0.0-1.0); %Eosinophils 0.1 % (0.0-10.0); %Lymphocytes 18.9 % (21.0-51.0); %Monocytes 5.9 % (0.0-10.0); %Neutrophils 74.5 % (42.0-75.0); Hemoglobin 13.5 g/dL (12.0-16.0); Mean Corpuscular HGB CONC 33.7 g/dL (32.0-36.0); Mean Corpuscular Hemoglobin 34.5 pg (27.0-31.0); Mean Platelet Volume 6.7 fL (7.4-10.4); Platelet Count 287 thou/uL (130-400); RBC Distribution Width 13.2 % (11.5-14.5); Red Blood Cell (RBC) Count 3.92 mill/uL (4.20-5.40); White Blood Cell (WBC) Count 8.9 thou/uL (4.8-10.8)
[2020-07-11 13:19] LABS: ALT (SGPT) 22 U/L (8-55); AST (SGOT) 28 U/L (5-34); Albumin 4.1 g/dL (3.4-4.8); Alkaline Phosphatase 86 U/L (40-110); Anion Gap 17 mmol/L (10-20); BUN (Urea Nitrogen) 13 mg/dL (9.8-20.1); Bilirubin, Total 0.8 mg/dL (0.2-1.2); Calc. Creatinine Clearance 0 mL/min (70-130); Calcium 9.9 mg/dL (7.8-10.44); Carbon Dioxide 24 mmol/L (23-31); Chloride 103 mmol/L (98-107); Globulin 2.8 g/dL (2.4-3.5); Glucose 124 mg/dL (83-110); Potassium 4.5 mmol/L (3.5-5.1); Protein, Total 6.9 g/dL (5.8-8.1); Sodium 139 mmol/L (136-145)
== END 2020-07-11 15:11 | disposition home or self-care (01) ==
LOC: ERS 11:32
DX: R53.1 Weakness (principal); E03.9 Hypothyroidism, unspecified; Z79.899 Other long term (current) drug therapy
CPT/HCPCS: 71045; 80053; 81003; 84484; 85025; 87086; 93005

== ENCOUNTER 2020-07-16 08:56 | Inpatient (IN) | payer MEDICARE, BC ==
[2020-07-16] MEDS ORDERED: Hydrocortisone Sod Succ/PF 100 mg/2 ml Vial ONE (09:39)
[2020-07-16] MEDS ORDERED: Ondansetron PF 4 MG/2 ML Vial ONE (09:39)
[2020-07-16 10:19] LABS: #Basophils 0.1 thou/uL (0.0-0.2); #Lymphocytes 4.2 thou/uL (1.20-3.40); #Monocytes 0.8 thou/uL (0.11-0.59); #Neutrophils 4.3 thou/uL (1.40-6.50); %Eosinophils 0.1 % (0.0-10.0); %Lymphocytes 44.4 % (21.0-51.0); %Neutrophils 45.4 % (42.0-75.0); Hemoglobin 12.1 g/dL (12.0-16.0); Mean Corpuscular HGB CONC 33.2 g/dL (32.0-36.0); Mean Corpuscular Hemoglobin 33.8 pg (27.0-31.0); Mean Platelet Volume 7.3 fL (7.4-10.4); Platelet Count 269 thou/uL (130-400); Red Blood Cell (RBC) Count 3.57 mill/uL (4.20-5.40); White Blood Cell (WBC) Count 9.4 thou/uL (4.8-10.8)
[2020-07-16 10:21] LABS: ALT (SGPT) 24 U/L (8-55); AST (SGOT) 27 U/L (5-34); Alkaline Phosphatase 81 U/L (40-110); Anion Gap 16 mmol/L (10-20); BUN (Urea Nitrogen) 11 mg/dL (9.8-20.1); Bilirubin, Total 0.9 mg/dL (0.2-1.2); Calc. Creatinine Clearance 0 mL/min (70-130); Calcium 9.5 mg/dL (7.8-10.44); Carbon Dioxide 25 mmol/L (23-31); Chloride 102 mmol/L (98-107); Globulin 2.6 g/dL (2.4-3.5); Glucose 100 mg/dL (83-110); Potassium 3.7 mmol/L (3.5-5.1); Protein, Total 6.6 g/dL (5.8-8.1); Sodium 139 mmol/L (136-145)
[2020-07-16 10:26] LABS: Troponin I 0.013 ng/mL (< 0.028)
[2020-07-16] MEDS ORDERED: Acetaminophen 325 MG TAB PO PRN (13:26)
[2020-07-16] MEDS ORDERED: Ondansetron ODT 4 MG TAB PO PRN (14:00)
[2020-07-16] MEDS ORDERED: Ondansetron PF 4 MG/2 ML Vial IVP PRN (14:00)
[2020-07-16] MEDS: Sodium Chloride 0.9% 1,000 ML IV SCH (14:58)
[2020-07-16] MEDS ORDERED: Cyanocobalamin 1000 MCG/ML VIAL IM SCH (15:00)
[2020-07-16 19:56] VITALS: BMI 27.4
[2020-07-16] MEDS: Apixaban 5 MG TAB PO SCH (21:04)
[2020-07-16] MEDS: Hydrocortisone Sod Succ/PF 100 mg/2 ml Vial IVP SCH (21:05)
[2020-07-16 22:33] LABS: SARS-CoV-2 PCR by NAA Not Detected (NotDetected)
[2020-07-16 23:23] LABS: Bacteria/HPF None Seen HPF (None Seen); Bilirubin Negative (Negative); Blood, Urine Negative (Negative); Clarity Clear (Clear); Glucose, Urine (Dipstick) Normal (Negative); Ketone, Urine Negative (Negative); Leukocyte Negative Leu/uL (Negative); Nitrite Negative (Negative); Protein, Urine (Dipstick) Negative (Neg-Trace); RBC/HPF 0-3 HPF (0-3); Squamous Epithelial None Seen HPF (0-3); Urobilinogen Normal mg/dL (Less than 2)
[2020-07-17] MEDS: Hydrocortisone Sod Succ/PF 100 mg/2 ml Vial IVP SCH ×3 (04:01→20:26)
[2020-07-17] MEDS: Sodium Chloride 0.9% 1,000 ML IV SCH ×2 (04:02→19:17)
[2020-07-17] MEDS: Levothyroxine Sodium 100 MCG TAB PO SCH (04:06)
[2020-07-17 06:31] LABS: #Lymphocytes 1.3 thou/uL (1.20-3.40); #Monocytes 0.3 thou/uL (0.11-0.59); #Neutrophils 3.9 thou/uL (1.40-6.50); %Basophils 0.4 % (0.0-1.0); %Eosinophils 0.1 % (0.0-10.0); %Monocytes 5.5 % (0.0-10.0); Hemoglobin 10.1 g/dL (12.0-16.0); Mean Corpuscular HGB CONC 32.9 g/dL (32.0-36.0); Mean Corpuscular Hemoglobin 33.6 pg (27.0-31.0); Mean Platelet Volume 6.8 fL (7.4-10.4); Platelet Count 239 thou/uL (130-400); RBC Distribution Width 13.1 % (11.5-14.5); White Blood Cell (WBC) Count 5.5 thou/uL (4.8-10.8)
[2020-07-17 06:51] LABS: Anion Gap 13 mmol/L (10-20); BUN (Urea Nitrogen) 9 mg/dL (9.8-20.1); Calc. Creatinine Clearance 87 mL/min (70-130); Calcium 8.7 mg/dL (7.8-10.44); Carbon Dioxide 22 mmol/L (23-31); Chloride 108 mmol/L (98-107); Glucose 114 mg/dL (83-110); Potassium 3.9 mmol/L (3.5-5.1); Sodium 139 mmol/L (136-145)
[2020-07-17] MEDS: Apixaban 5 MG TAB PO SCH ×2 (09:09→20:26)
[2020-07-17] MEDS: Fludrocortisone Acetate 0.1 MG TAB PO SCH (09:09)
[2020-07-17] MEDS: Pantoprazole 40 MG GRANULES PACKET PO SCH (09:11)
[2020-07-18] MEDS: Hydrocortisone Sod Succ/PF 100 mg/2 ml Vial IVP SCH ×4 (05:20→20:09)
[2020-07-18] MEDS: Levothyroxine Sodium 100 MCG TAB PO SCH (05:21)
[2020-07-18] MEDS: Sodium Chloride 0.9% 1,000 ML IV SCH (05:22)
[2020-07-18] MEDS: Apixaban 5 MG TAB PO SCH ×2 (10:08→20:10)
[2020-07-18] MEDS: Fludrocortisone Acetate 0.1 MG TAB PO SCH (10:11)
[2020-07-18] MEDS: Pantoprazole 40 MG GRANULES PACKET PO SCH (10:11)
[2020-07-19] MEDS: Levothyroxine Sodium 100 MCG TAB PO SCH (04:17)
[2020-07-19] MEDS: Hydrocortisone Sod Succ/PF 100 mg/2 ml Vial IVP SCH ×3 (04:18→19:44)
[2020-07-19 07:34] LABS: #Lymphocytes 1.3 thou/uL (1.20-3.40); #Monocytes 0.5 thou/uL (0.11-0.59); #Neutrophils 3.5 thou/uL (1.40-6.50); %Basophils 0.5 % (0.0-1.0); %Eosinophils 0.1 % (0.0-10.0); %Lymphocytes 25.2 % (21.0-51.0); %Monocytes 8.7 % (0.0-10.0); %Neutrophils 65.6 % (42.0-75.0); Hemoglobin 10.6 g/dL (12.0-16.0); Mean Corpuscular HGB CONC 33.8 g/dL (32.0-36.0); Mean Corpuscular Hemoglobin 34.8 pg (27.0-31.0); Mean Platelet Volume 6.8 fL (7.4-10.4); Platelet Count 236 thou/uL (130-400); RBC Distribution Width 12.9 % (11.5-14.5); Red Blood Cell (RBC) Count 3.04 mill/uL (4.20-5.40); White Blood Cell (WBC) Count 5.3 thou/uL (4.8-10.8)
[2020-07-19 07:53] LABS: Anion Gap 10 mmol/L (10-20); BUN (Urea Nitrogen) 9 mg/dL (9.8-20.1); Calc. Creatinine Clearance 96 mL/min (70-130); Calcium 8.7 mg/dL (7.8-10.44); Carbon Dioxide 26 mmol/L (23-31); Chloride 109 mmol/L (98-107); Glucose 99 mg/dL (83-110); Potassium 3.1 mmol/L (3.5-5.1); Sodium 142 mmol/L (136-145)
[2020-07-19] MEDS: Pantoprazole 40 MG GRANULES PACKET PO SCH (09:15)
[2020-07-19] MEDS: Apixaban 5 MG TAB PO SCH ×2 (09:15→20:48)
[2020-07-19] MEDS: Fludrocortisone Acetate 0.1 MG TAB PO SCH ×2 (09:15→17:00)
[2020-07-19] MEDS ORDERED: Potassium Chloride 20 MEQ TAB PO SCH (18:45)
[2020-07-19] MEDS ORDERED: POTASSIUM 10 MEQ PO SCH (20:30)
[2020-07-20] MEDS: Levothyroxine Sodium 100 MCG TAB PO SCH (06:05)
[2020-07-20] MEDS ORDERED: predniSONE 5 MG TAB PO SCH ×2 (08:00→17:00)
[2020-07-20 08:17] LABS: Anion Gap 10 mmol/L (10-20); BUN (Urea Nitrogen) 9 mg/dL (9.8-20.1); Calc. Creatinine Clearance 90 mL/min (70-130); Calcium 8.8 mg/dL (7.8-10.44); Carbon Dioxide 28 mmol/L (23-31); Chloride 107 mmol/L (98-107); Glucose 83 mg/dL (83-110); Potassium 3.3 mmol/L (3.5-5.1); Sodium 142 mmol/L (136-145)
[2020-07-20] MEDS: Apixaban 5 MG TAB PO SCH (08:30)
[2020-07-20] MEDS: Fludrocortisone Acetate 0.1 MG TAB PO SCH (08:33)
[2020-07-20] MEDS: Pantoprazole 40 MG GRANULES PACKET PO SCH (08:33)
[2020-07-20 09:00] VITALS: TEMP 98.5
[2020-07-20] MEDS ORDERED: predniSONE 20 MG TAB PO SCH (09:45)
[2020-07-20] MEDS ORDERED: Potassium Chloride 20 MEQ TAB PO SCH (09:45)
[2020-07-20 11:51] VITALS: BP 144/65
== END 2020-07-20 15:12 | disposition home or self-care (01) | DRG 644 ==
LOC: ERS 08:56 → ERHOLD 13:26 → ONC 18:00
PROVIDERS: ADMIT Hospitalist; ATTEND Internal Medicine
DX: E27.2 Addisonian crisis (principal); D84.9 Immunodeficiency, unspecified; E03.9 Hypothyroidism, unspecified; Z88.2 Allergy status to sulfonamides; Z88.1 Allergy status to other antibiotic agents; Z91.013 Allergy to seafood; L89.159 Pressure ulcer of sacral region, unspecified stage; R53.81 Other malaise; Z86.718 Personal history of other venous thrombosis and embolism; Z86.11 Personal history of tuberculosis; M41.9 Scoliosis, unspecified; Z79.52 Long term (current) use of systemic steroids; I95.9 Hypotension, unspecified
CPT/HCPCS: 36415; 71045; 80048; 80053; 81001; 82533; 83605; 83880; 84443; 84484; 85025; 87635; 93005; 96374; 96375; J1720; J2405; J3420; J7512; U0003; U0005

== ENCOUNTER 2021-10-19 05:04 | Emergency (ER) | payer MEDICARE, BC ==
[2021-10-19] MEDS ORDERED: Ondansetron ODT 4 MG TAB ONE ×2 (06:02)
[2021-10-19 06:04] LABS: Hemoglobin 11.1 g/dL (12.0-16.0); Mean Corpuscular HGB CONC 32.8 g/dL (32.0-36.0); Mean Corpuscular Hemoglobin 35.5 pg (27.0-31.0); Mean Platelet Volume 6.7 fL (7.4-10.4); Platelet Count 249 thou/uL (130-400); RBC Distribution Width 13.2 % (11.5-14.5); Red Blood Cell (RBC) Count 3.14 mill/uL (4.20-5.40); White Blood Cell (WBC) Count 13.9 thou/uL (4.8-10.8)
[2021-10-19 06:18] LABS: #Basophils 0.1 thou/uL (0.0-0.2); #Lymphocytes 4.3 thou/uL (1.20-3.40); #Monocytes 0.9 thou/uL (0.11-0.59); #Neutrophils 8.6 thou/uL (1.40-6.50); %Basophils 0.5 % (0.0-1.0); %Eosinophils 0.1 % (0.0-10.0); %Lymphocytes 31.1 % (21.0-51.0); %Monocytes 6.2 % (0.0-10.0); %Neutrophils 62.2 % (42.0-75.0)
[2021-10-19 06:22] LABS: ALT (SGPT) 16 U/L (8-55); AST (SGOT) 17 U/L (5-34); Albumin 3.7 g/dL (3.4-4.8); Alkaline Phosphatase 74 U/L (40-110); Anion Gap 15 mmol/L (10-20); BUN (Urea Nitrogen) 15 mg/dL (9.8-20.1); Bilirubin, Total 1.2 mg/dL (0.2-1.2); Calc. Creatinine Clearance 0 mL/min (70-130); Calcium 9.1 mg/dL (7.8-10.44); Carbon Dioxide 28 mmol/L (23-31); Chloride 101 mmol/L (98-107); Estimated GFR 83; Globulin 2.3 g/dL (2.4-3.5); Glucose 103 mg/dL (83-110); Lipase 8 U/L (8-78); Potassium 3.5 mmol/L (3.5-5.1); Sodium 140 mmol/L (136-145)
[2021-10-19] MEDS ORDERED: HYDROcodone/Acetaminophen 5/325 mg Tablet ONE (06:55)
[2021-10-19 07:13] LABS: Bilirubin Negative (Negative); Blood, Urine Negative (Negative); Clarity Clear (Clear); Glucose, Urine (Dipstick) Normal (Negative); Ketone, Urine Negative (Negative); Leukocyte Negative Leu/uL (Negative); Nitrite Negative (Negative); Protein, Urine (Dipstick) 10 mg/dL (Neg-Trace); Specific Gravity, Urine 1.021 (1.002-1.036); Urobilinogen 6 mg/dL (Less than 2)
== END 2021-10-19 07:20 | disposition home or self-care (01) ==
LOC: ERS 05:04
DX: R10.12 Left upper quadrant pain (principal); D51.0 Vitamin B12 deficiency anemia due to intrinsic factor deficiency; E03.9 Hypothyroidism, unspecified; Z79.01 Long term (current) use of anticoagulants; Z79.899 Other long term (current) drug therapy
CPT/HCPCS: 36415; 80053; 81003; 83690; 85025; 93005; Q0162

== ENCOUNTER 2023-06-13 20:03 | Emergency (ER) | payer MEDICARE, BC ==
[2023-06-13 21:27] LABS: #Basophils Less than 0.03 10x3/uL (0.0-0.2); #Eosinphils Less than 0.03 10x3/uL (0.0-0.7); %Basophils 0.4 % (0.0-1.0); %Lymphocytes 40.8 % (21.0-51.0); %Monocytes 9.4 % (0.0-10.0); %Neutrophils 49.2 % (42.0-75.0); Hematocrit 30.7 % (36.0-47.0); Hemoglobin 10.3 g/dL (12.0-16.0); Mean Corpuscular HGB CONC 33.6 g/dL (32.0-36.0); Mean Corpuscular Hemoglobin 34.9 pg (27.0-31.0); Mean Corpuscular Volume 104.1 fL (78.0-98.0); Mean Platelet Volume 9.5 fL (7.4-10.4); Platelet Count 194 10x3/uL (130-400); RBC Distribution Width 13.8 % (11.5-14.5); Red Blood Cell (RBC) Count 2.95 mill/uL (4.20-5.40)
[2023-06-13] MEDS ORDERED: Ondansetron PF 4 MG/2 ML Vial ONE (21:27)
[2023-06-13 21:44] LABS: ALT (SGPT) 11 U/L (8-55); AST (SGOT) 20 U/L (5-34); Albumin 3.8 g/dL (3.4-4.8); Alkaline Phosphatase 72 U/L (40-110); Anion Gap 14 mmol/L (10-20); BUN (Urea Nitrogen) 16 mg/dL (9.8-20.1); Bilirubin, Total 0.5 mg/dL (0.2-1.2); Calc. Creatinine Clearance 0 mL/min (70-130); Calcium 9.1 mg/dL (7.8-10.44); Carbon Dioxide 24 mmol/L (23-31); Chloride 103 mmol/L (98-107); Estimated GFR 67; Globulin 2.3 g/dL (2.4-3.5); Glucose 164 mg/dL (83-110); Magnesium 1.4 mg/dL (1.6-2.6); Potassium 4.4 mmol/L (3.5-5.1); Protein, Total 6.1 g/dL (5.8-8.1); Sodium 137 mmol/L (136-145)
[2023-06-13] MEDS ORDERED: Magnesium 2 GM/50 ML BAG (IN WATER) ONE (22:46)
[2023-06-13 23:06] LABS: Bacteria/HPF 2+ HPF (None Seen); Bilirubin Negative (Negative); Blood, Urine 2+ (Negative); CAUTI Indications for Culture Pelvic or flank pain; Clarity Clear (Clear); Glucose, Urine (Dipstick) Normal (Negative); Ketone, Urine Negative (Negative); Leukocyte Negative Leu/uL (Negative); Nitrite Negative (Negative); Protein, Urine (Dipstick) Negative (Neg-Trace); Specific Gravity, Urine 1.012 (1.002-1.036); Squamous Epithelial None Seen HPF (0-3); Urobilinogen Normal mg/dL (Less than 2); WBC/HPF 0-3 HPF (0-3)
[2023-06-13 23:07] LABS: Urine Culture Reflex No No
== END 2023-06-14 01:00 | disposition home or self-care (01) ==
LOC: ERS 20:03
DX: E83.42 Hypomagnesemia (principal); R53.83 Other fatigue; R53.81 Other malaise; I10 Essential (primary) hypertension; E03.9 Hypothyroidism, unspecified; Z55.6 Problems related to health literacy; Z79.899 Other long term (current) drug therapy
CPT/HCPCS: 36415; 71045; 80053; 81001; 83735; 85025; 93005; 96374; 96375; J2405; J3475

== ENCOUNTER 2023-08-16 09:55 | Inpatient (IN) | payer MEDICARE ==
[2023-08-16] MEDS ORDERED: Acetaminophen 325 MG TAB ONE (13:34)
[2023-08-16] MEDS ORDERED: Fleet Saline Enema 133 ML BOT ONE (13:34)
[2023-08-16] MEDS ORDERED: Ondansetron PF 4 MG/2 ML Vial IVP PRN (13:56)
[2023-08-16] MEDS ORDERED: Calcium Carbonate 500 MG ChewTAB PO PRN (13:56)
[2023-08-16 14:16] LABS: #Basophils 0.03 10x3/uL (0.0-0.2); #Eosinphils Less than 0.03 10x3/uL (0.0-0.7); %Basophils 0.4 % (0.0-1.0); %Lymphocytes 35.4 % (21.0-51.0); %Monocytes 8.1 % (0.0-10.0); %Neutrophils 55.8 % (42.0-75.0); Hematocrit 28.8 % (36.0-47.0); Hemoglobin 9.5 g/dL (12.0-16.0); Mean Corpuscular Hemoglobin 35.3 pg (27.0-31.0); Mean Corpuscular Volume 107.1 fL (78.0-98.0); Mean Platelet Volume 9.4 fL (7.4-10.4); Platelet Count 240 10x3/uL (130-400); RBC Distribution Width 15.2 % (11.5-14.5); Red Blood Cell (RBC) Count 2.69 mill/uL (4.20-5.40)
[2023-08-16 14:30] LABS: INR-International Normal Ratio 1.2; Prothrombin Time 15.3 sec (12.0-14.7)
[2023-08-16 14:31] LABS: ALT (SGPT) 14 U/L (8-55); AST (SGOT) 16 U/L (5-34); Albumin 3.2 g/dL (3.4-4.8); Alkaline Phosphatase 60 U/L (40-110); Anion Gap 12 mmol/L (10-20); BUN (Urea Nitrogen) 23 mg/dL (9.8-20.1); Bilirubin, Total 0.6 mg/dL (0.2-1.2); Calc. Creatinine Clearance 0 mL/min (70-130); Calcium 8.7 mg/dL (7.8-10.44); Carbon Dioxide 25 mmol/L (23-31); Chloride 103 mmol/L (98-107); Estimated GFR 82; Glucose 117 mg/dL (83-110); Potassium 3.8 mmol/L (3.5-5.1); Protein, Total 5.2 g/dL (5.8-8.1); Sodium 136 mmol/L (136-145)
[2023-08-16 14:34] VITALS: BMI 21.4
[2023-08-16] MEDS: HYDROcodone/Acetaminophen 5/325 mg Tablet PO PRN (15:45)
[2023-08-16] MEDS: predniSONE 5 MG TAB PO SCH (17:34)
[2023-08-16] MEDS ORDERED: Levothyroxine Sodium 88 MCG TAB PO SCH (21:00)
[2023-08-17] MEDS: Levothyroxine Sodium 100 MCG TAB PO SCH (05:24)
[2023-08-17 06:03] LABS: #Basophils Less than 0.03 10x3/uL (0.0-0.2); %Basophils 0.3 % (0.0-1.0); %Eosinophils 1.6 % (0.0-10.0); %Lymphocytes 43.5 % (21.0-51.0); %Monocytes 7.8 % (0.0-10.0); %Neutrophils 46.5 % (42.0-75.0); Hematocrit 30.7 % (36.0-47.0); Hemoglobin 10.2 g/dL (12.0-16.0); Mean Corpuscular HGB CONC 33.2 g/dL (32.0-36.0); Mean Corpuscular Hemoglobin 34.8 pg (27.0-31.0); Mean Corpuscular Volume 104.8 fL (78.0-98.0); Mean Platelet Volume 9.1 fL (7.4-10.4); Platelet Count 240 10x3/uL (130-400); Red Blood Cell (RBC) Count 2.93 mill/uL (4.20-5.40)
[2023-08-17 06:20] LABS: ALT (SGPT) 11 U/L (8-55); AST (SGOT) 17 U/L (5-34); Albumin 3.1 g/dL (3.4-4.8); Alkaline Phosphatase 60 U/L (40-110); Anion Gap 14 mmol/L (10-20); BUN (Urea Nitrogen) 16 mg/dL (9.8-20.1); Bilirubin, Total 0.8 mg/dL (0.2-1.2); Calc. Creatinine Clearance 60 mL/min (70-130); Carbon Dioxide 25 mmol/L (23-31); Chloride 105 mmol/L (98-107); Estimated GFR 90; Globulin 2.4 g/dL (2.4-3.5); Glucose 80 mg/dL (83-110); Potassium 3.8 mmol/L (3.5-5.1); Protein, Total 5.5 g/dL (5.8-8.1); Sodium 140 mmol/L (136-145)
[2023-08-17] MEDS ORDERED: CEFAZOLIN 2 GM in Sodium Chloride 0.9% 100 ML IVPB SCH (07:30)
[2023-08-17] MEDS: Fludrocortisone Acetate 0.1 MG TAB PO SCH (08:53)
[2023-08-17] MEDS: predniSONE 5 MG TAB PO SCH ×2 (08:53→17:01)
[2023-08-17] MEDS: HYDROcodone/Acetaminophen 7.5/325 mg Tablet PO PRN (10:21)
[2023-08-17] MEDS ORDERED: predniSONE 5 MG TAB PO SCH ×2 (12:00→15:00)
[2023-08-17] MEDS: Cholecalciferol 1,000 UNITS (25 MCG) TAB PO SCH (13:08)
[2023-08-17] MEDS: Calcium Carbonate + Vit D 250 MG TAB PO SCH (13:09)
[2023-08-17] MEDS: predniSONE 1 MG/ML ORAL SOLN PO SCH (17:52)
[2023-08-17] MEDS: predniSONE 5 MG/5 ML UDCUP PO SCH (17:52)
[2023-08-17] MEDS: Pantoprazole DR 40 MG TAB PO SCH (20:52)
[2023-08-17] MEDS ORDERED: predniSONE 5 MG/5 ML UDCUP PO SCH (21:00)
[2023-08-17] MEDS: Hydrocortisone Sod Succ/PF 100 mg/2 ml Vial IVP SCH (23:58)
[2023-08-18] MEDS ORDERED: Hydrocortisone Sod Succ/PF 100 mg/2 ml Vial IVP SCH ×2 (06:00→12:00)
[2023-08-18 06:28] LABS: #Basophils Less than 0.03 10x3/uL (0.0-0.2); #Eosinphils Less than 0.03 10x3/uL (0.0-0.7); %Basophils 0.3 % (0.0-1.0); %Monocytes 5.5 % (0.0-10.0); %Neutrophils 70.9 % (42.0-75.0); Hematocrit 31.7 % (36.0-47.0); Hemoglobin 10.5 g/dL (12.0-16.0); Mean Corpuscular HGB CONC 33.1 g/dL (32.0-36.0); Mean Corpuscular Hemoglobin 35.6 pg (27.0-31.0); Mean Corpuscular Volume 107.5 fL (78.0-98.0); Platelet Count 209 10x3/uL (130-400); RBC Distribution Width 14.9 % (11.5-14.5); Red Blood Cell (RBC) Count 2.95 mill/uL (4.20-5.40)
[2023-08-18 06:40] LABS: Anion Gap 14 mmol/L (10-20); BUN (Urea Nitrogen) 18 mg/dL (9.8-20.1); Calc. Creatinine Clearance 59 mL/min (70-130); Calcium 8.8 mg/dL (7.8-10.44); Carbon Dioxide 26 mmol/L (23-31); Chloride 103 mmol/L (98-107); Estimated GFR 90; Glucose 118 mg/dL (83-110); Potassium 3.9 mmol/L (3.5-5.1); Sodium 139 mmol/L (136-145)
[2023-08-18] MEDS ORDERED: predniSONE 5 MG TAB PO SCH (09:00)
[2023-08-18] MEDS ORDERED: predniSONE 5 MG/5 ML UDCUP PO SCH (09:00)
[2023-08-18] MEDS ORDERED: predniSONE 1 MG/ML ORAL SOLN PO SCH (09:00)
[2023-08-18] MEDS: D5 1/2 NS w/10 mEq KCl 1,000 ML/1,000 ML BAG IV SCH (10:05)
[2023-08-18] MEDS ORDERED: PROPOFOL 20 ML ONE (12:08)
[2023-08-18] MEDS ORDERED: Rocuronium Bromide 10 MG/ML (10ML VIAL) ONE (12:08)
[2023-08-18] MEDS ORDERED: fentaNYL 50 mcg/mL 1 mL Vial ONE ×3 (12:08→14:03)
[2023-08-18] MEDS ORDERED: Lidocaine 1% PF 5 ML VIAL ONE (12:08)
[2023-08-18] MEDS ORDERED: Sodium Chloride 0.9% 100 ML ONE (12:16)
[2023-08-18] MEDS ORDERED: CEFAZOLIN 2 GM VIAL ONE (12:16)
[2023-08-18] MEDS ORDERED: ePHEDrine Sulfate 50 MG/10 ML VIAL ONE (12:54)
[2023-08-18] MEDS ORDERED: PHENYLEPHRINE-NS 100 MCG/ML 10 ML SYRINGE ONE (12:57)
[2023-08-18] MEDS ORDERED: Ondansetron PF 4 MG/2 ML Vial ONE (13:06)
[2023-08-18] MEDS ORDERED: Promethazine HCl 25 MG/ML VIAL IM PRN (13:16)
[2023-08-18] MEDS ORDERED: Ondansetron HCl/PF 4 MG/2 ML Vial IVP PRN (13:16)
[2023-08-18] MEDS: Ferrous Sulfate 325 MG TAB PO SCH (13:47)
[2023-08-18] MEDS: Morphine 2 MG/ML VIAL SLOW IVP PRN (16:13)
[2023-08-18] MEDS: HYDROmorphone 0.5 MG/0.5 ML SYRINGE SLOW IVP SCH (20:00)
[2023-08-18] MEDS: CEFAZOLIN 2 GM in Sodium Chloride 0.9% 100 ML IVPB SCH (20:48)
[2023-08-18] MEDS: Senokot S 8.6-50 MG TAB PO PRN (20:49)
[2023-08-19 05:19] LABS: #Basophils Less than 0.03 10x3/uL (0.0-0.2); #Eosinphils Less than 0.03 10x3/uL (0.0-0.7); %Basophils 0.1 % (0.0-1.0); %Lymphocytes 16.4 % (21.0-51.0); %Monocytes 7.6 % (0.0-10.0); %Neutrophils 75.6 % (42.0-75.0); Hemoglobin 9.5 g/dL (12.0-16.0); Mean Corpuscular HGB CONC 32.8 g/dL (32.0-36.0); Mean Corpuscular Hemoglobin 34.7 pg (27.0-31.0); Mean Corpuscular Volume 105.8 fL (78.0-98.0); Platelet Count 216 10x3/uL (130-400); RBC Distribution Width 14.9 % (11.5-14.5); Red Blood Cell (RBC) Count 2.74 mill/uL (4.20-5.40)
[2023-08-19 05:29] LABS: Anion Gap 14 mmol/L (10-20); BUN (Urea Nitrogen) 15 mg/dL (9.8-20.1); Calc. Creatinine Clearance 59 mL/min (70-130); Calcium 8.1 mg/dL (7.8-10.44); Carbon Dioxide 25 mmol/L (23-31); Chloride 104 mmol/L (98-107); Estimated GFR 90; Glucose 165 mg/dL (83-110); Potassium 3.8 mmol/L (3.5-5.1); Sodium 139 mmol/L (136-145)
[2023-08-19] MEDS ORDERED: Morphine 4 MG/ML VIAL SLOW IVP PRN (20:06)
[2023-08-19] MEDS: Enoxaparin 40 MG (0.4 mL) SYRINGE SC SCH (20:42)
[2023-08-20 06:07] LABS: #Basophils 0.03 10x3/uL (0.0-0.2); #Eosinphils Less than 0.03 10x3/uL (0.0-0.7); %Basophils 0.4 % (0.0-1.0); %Lymphocytes 46.2 % (21.0-51.0); %Monocytes 8.6 % (0.0-10.0); %Neutrophils 44.5 % (42.0-75.0); Hematocrit 28.8 % (36.0-47.0); Hemoglobin 9.4 g/dL (12.0-16.0); Mean Corpuscular HGB CONC 32.6 g/dL (32.0-36.0); Mean Corpuscular Hemoglobin 35.1 pg (27.0-31.0); Mean Corpuscular Volume 107.5 fL (78.0-98.0); Mean Platelet Volume 9.4 fL (7.4-10.4); Platelet Count 221 10x3/uL (130-400); RBC Distribution Width 15.1 % (11.5-14.5); Red Blood Cell (RBC) Count 2.68 mill/uL (4.20-5.40)
[2023-08-20 06:27] LABS: Anion Gap 13 mmol/L (10-20); BUN (Urea Nitrogen) 15 mg/dL (9.8-20.1); Calc. Creatinine Clearance 55 mL/min (70-130); Calcium 8.7 mg/dL (7.8-10.44); Carbon Dioxide 27 mmol/L (23-31); Chloride 106 mmol/L (98-107); Estimated GFR 88; Glucose 82 mg/dL (83-110); Sodium 142 mmol/L (136-145)
[2023-08-20] MEDS ORDERED: predniSONE 20 MG TAB PO SCH (09:00)
[2023-08-20] MEDS: predniSONE 5 MG TAB PO SCH (10:21)
[2023-08-20] MEDS: Polyethylene Glycol 3350 17 GM Packet PO SCH (13:19)
[2023-08-20] MEDS: Multivitamin W/ Minerals 1 TAB PO SCH (13:22)
[2023-08-20] MEDS: Acetaminophen 325 MG TAB PO PRN (20:32)
[2023-08-20] MEDS: Senokot S 8.6-50 MG TAB PO SCH (20:32)
[2023-08-21 06:53] LABS: #Basophils 0.03 10x3/uL (0.0-0.2); #Eosinphils Less than 0.03 10x3/uL (0.0-0.7); %Basophils 0.4 % (0.0-1.0); %Lymphocytes 45.9 % (21.0-51.0); %Monocytes 7.9 % (0.0-10.0); %Neutrophils 45.5 % (42.0-75.0); Hematocrit 29.2 % (36.0-47.0); Hemoglobin 9.4 g/dL (12.0-16.0); Mean Corpuscular HGB CONC 32.2 g/dL (32.0-36.0); Mean Corpuscular Hemoglobin 35.2 pg (27.0-31.0); Mean Corpuscular Volume 109.4 fL (78.0-98.0); Mean Platelet Volume 9.4 fL (7.4-10.4); Platelet Count 208 10x3/uL (130-400); RBC Distribution Width 14.9 % (11.5-14.5); Red Blood Cell (RBC) Count 2.67 mill/uL (4.20-5.40)
[2023-08-21 07:00] LABS: Anion Gap 13 mmol/L (10-20); BUN (Urea Nitrogen) 18 mg/dL (9.8-20.1); Calc. Creatinine Clearance 67 mL/min (70-130); Calcium 8.7 mg/dL (7.8-10.44); Carbon Dioxide 27 mmol/L (23-31); Chloride 104 mmol/L (98-107); Estimated GFR 92; Glucose 81 mg/dL (83-110); Potassium 3.8 mmol/L (3.5-5.1); Sodium 140 mmol/L (136-145)
[2023-08-21] MEDS: predniSONE 5 MG TAB PO SCH ×3 (09:00→18:36)
[2023-08-21] MEDS ORDERED: Teriparatide [Forteo] 2.4 ML Pen.Injctr SC SCH (09:00)
[2023-08-21] MEDS: Bisacodyl 10 MG SUPP PR PRN (10:46)
[2023-08-21] MEDS: predniSONE 20 MG TAB PO SCH (10:56)
[2023-08-22 06:07] LABS: #Basophils 0.03 10x3/uL (0.0-0.2); %Basophils 0.4 % (0.0-1.0); %Eosinophils 1.7 % (0.0-10.0); %Monocytes 7.3 % (0.0-10.0); %Neutrophils 45.2 % (42.0-75.0); Hematocrit 29.1 % (36.0-47.0); Hemoglobin 9.4 g/dL (12.0-16.0); Mean Corpuscular HGB CONC 32.3 g/dL (32.0-36.0); Mean Corpuscular Hemoglobin 34.3 pg (27.0-31.0); Mean Corpuscular Volume 106.2 fL (78.0-98.0); Mean Platelet Volume 9.5 fL (7.4-10.4); Platelet Count 230 10x3/uL (130-400); RBC Distribution Width 14.7 % (11.5-14.5); Red Blood Cell (RBC) Count 2.74 mill/uL (4.20-5.40)
[2023-08-22 06:44] LABS: Anion Gap 15 mmol/L (10-20); BUN (Urea Nitrogen) 15 mg/dL (9.8-20.1); Calc. Creatinine Clearance 61 mL/min (70-130); Calcium 8.6 mg/dL (7.8-10.44); Carbon Dioxide 21 mmol/L (23-31); Chloride 106 mmol/L (98-107); Estimated GFR 90; Glucose 79 mg/dL (83-110); Potassium 4.7 mmol/L (3.5-5.1); Sodium 137 mmol/L (136-145)
[2023-08-23 12:19] VITALS: BMI 21.4
[2023-08-24] MEDS ORDERED: Cyanocobalamin 1000 MCG/ML VIAL IM SCH (16:45)
[2023-08-24] MEDS: Cyanocobalamin 1000 MCG/ML VIAL IM SCH (17:15)
[2023-08-25 15:32] VITALS: BP 132/74; TEMP 97.7
[2023-08-25] MEDS: Apixaban 2.5 MG TAB PO SCH (16:54)
== END 2023-08-25 17:42 | DRG 481 ==
LOC: ERS 09:55 → SUATTDRO 09:55 → SURG A 14:13
PROVIDERS: ADMIT Internal Medicine; ATTEND Hospitalist
PROC: 0QS604Z Reposition Right Upper Femur with Internal Fixation Device, Open Approach (ICD-10-PCS; principal; 2023-08-18)
DX: S72.011A Unspecified intracapsular fracture of right femur, initial encounter for closed fracture (principal); E27.1 Primary adrenocortical insufficiency; J96.12 Chronic respiratory failure with hypercapnia; I50.22 Chronic systolic (congestive) heart failure; J84.9 Interstitial pulmonary disease, unspecified; J84.10 Pulmonary fibrosis, unspecified; E03.9 Hypothyroidism, unspecified; M41.9 Scoliosis, unspecified; I48.0 Paroxysmal atrial fibrillation; Z66 Do not resuscitate; W19.XXXA Unspecified fall, initial encounter; K59.00 Constipation, unspecified; I45.10 Unspecified right bundle-branch block; Z86.718 Personal history of other venous thrombosis and embolism; Z86.711 Personal history of pulmonary embolism; Z79.899 Other long term (current) drug therapy; Z79.01 Long term (current) use of anticoagulants; Z79.52 Long term (current) use of systemic steroids; Z88.2 Allergy status to sulfonamides; Z91.013 Allergy to seafood; Z88.1 Allergy status to other antibiotic agents; Z79.890 Hormone replacement therapy; Z99.81 Dependence on supplemental oxygen; Y93.89 Activity, other specified; Y92.098 Other place in other non-institutional residence as the place of occurrence of the external cause
CPT/HCPCS: 36415; 80048; 80053; 83880; 85025; 85520; 85610; 93005; 93306; C1713; G0390; J1650; J1720; J2272; J2405; J2704; J3010; J3420; J3480; J3490; J7512

== ENCOUNTER 2023-12-14 18:35 | Inpatient (IN) | payer MEDICARE ==
[~2023-12-14 18:35] MED LIST: Iopamidol-370 76% 500 ML MDV (1 ML CHARGE) ONE
[2023-12-14] MEDS ORDERED: Sodium Chloride 0.9% 100 ML ONE (19:28)
[2023-12-14] MEDS ORDERED: Cefepime 2 GM VIAL ONE (19:28)
[2023-12-14 19:30] LABS: Hematocrit 31.2 % (36.0-47.0); Hemoglobin 9.8 g/dL (12.0-16.0); Mean Corpuscular HGB CONC 31.4 g/dL (32.0-36.0); Mean Corpuscular Hemoglobin 33.3 pg (27.0-31.0); Mean Corpuscular Volume 106.1 fL (78.0-98.0); Mean Platelet Volume 10.4 fL (7.4-10.4); Platelet Count 171 10x3/uL (130-400); RBC Distribution Width 14.9 % (11.5-14.5); Red Blood Cell (RBC) Count 2.94 mill/uL (4.20-5.40)
[2023-12-14 19:47] LABS: ALT (SGPT) 10 U/L (8-55); AST (SGOT) 16 U/L (5-34); Albumin 2.4 g/dL (3.4-4.8); Alkaline Phosphatase 73 U/L (40-110); Anion Gap 16 mmol/L (10-20); BUN (Urea Nitrogen) 22 mg/dL (9.8-20.1); Bilirubin, Total 1.1 mg/dL (0.2-1.2); Calc. Creatinine Clearance 0 mL/min (70-130); Calcium 8.4 mg/dL (7.8-10.44); Carbon Dioxide 30 mmol/L (23-31); Chloride 100 mmol/L (98-107); Estimated GFR 33; Globulin 2.6 g/dL (2.4-3.5); Glucose 107 mg/dL (83-110); Potassium 4.1 mmol/L (3.5-5.1); Sodium 142 mmol/L (136-145)
[2023-12-14 19:52] LABS: Band 50 % (5-11); Large Platelets 0.9 % (0-5); Lymphocytes 12 % (21-51); Macrocytosis SLIGHT = 6-15 cells HPF (0-5); Monocytes 2 % (0-10); Neutrophil 36 % (42-75); Platelet Adequacy Comment Platelets Normal; Polychromasia SLIGHT = 2-3 cells HPF (0-2); Reactive Lymphocytes 1 % (0-10); Smudge Cells 5.6 %
[2023-12-14] MEDS ORDERED: fentaNYL 50 mcg/mL 1 mL Vial ONE ×2 (20:18→22:02)
[2023-12-14 20:20] LABS: Bilirubin Negative (Negative); Blood, Urine 2+ (Negative); CAUTI Indications for Culture Alt mental st,lethar; Calcium Oxalate Crystals Rare HPF (None Seen); Clarity Extra Turbid (Clear); Glucose, Urine (Dipstick) Normal (Negative); Ketone, Urine Negative (Negative); Leukocyte 75 Leu/uL (Negative); Nitrite Negative (Negative); Protein, Urine (Dipstick) 200 mg/dL (Neg-Trace); Specific Gravity, Urine 1.023 (1.002-1.036); Squamous Epithelial 0-3 HPF (0-3); Urobilinogen 3 mg/dL (Less than 2); pH, Urine 5.5 (5.0-9.0)
[2023-12-14 20:21] LABS: Bacteria/HPF Rare-Few HPF (None Seen); WBC/HPF 21-50 HPF (0-3)
[2023-12-14 20:22] LABS: RBC/HPF 21-50 HPF (0-3); Urine Culture Reflex Yes Yes
[2023-12-14] MEDS ORDERED: traMADol HCl 50 MG TAB PO PRN (22:23)
[2023-12-14] MEDS ORDERED: Acetaminophen 325 MG TAB PO PRN (22:23)
[2023-12-14] MEDS ORDERED: Ondansetron ODT 4 MG TAB PO PRN (22:23)
[2023-12-14] MEDS ORDERED: Ondansetron PF 4 MG/2 ML Vial IVP PRN (22:23)
[2023-12-14 23:35] VITALS: BMI 20.2
[2023-12-14 23:40] LABS: Lactic Acid 2.83 mmol/L (0.5-2.2)
[2023-12-14] MEDS: Vancomycin (BATCH) 1.5 GM in Premix 1 BAG IVPB SCH (23:42)
[2023-12-14] MEDS: D5 1/2 NS w/20 mEq KCL 1,000 ML IV SCH (23:43)
[2023-12-14] MEDS: Pantoprazole 40 MG VIAL IVP SCH (23:44)
[2023-12-14] MEDS ORDERED: Vancomycin Dose by Levels Sliding Scale (Wt <71) FS SCH (23:45)
[2023-12-15] MEDS: Piperacillin/Tazobactam 3.375 GM in Sodium Chloride 0.9% 100 ML IVPB SCH ×4 (00:32→05:12)
[2023-12-15] MEDS: Morphine 2 MG/ML VIAL SLOW IVP PRN (00:34)
[2023-12-15] MEDS: fentaNYL 50 mcg/mL 1 mL Vial SLOW IVP SCH (01:12)
[2023-12-15] MEDS: HYDROcodone/Acetaminophen 7.5/325 mg Tablet PO PRN (05:15)
[2023-12-15 05:54] LABS: ALT (SGPT) 11 U/L (8-55); AST (SGOT) 23 U/L (5-34); Albumin 2.1 g/dL (3.4-4.8); Alkaline Phosphatase 72 U/L (40-110); Anion Gap 11 mmol/L (10-20); BUN (Urea Nitrogen) 28 mg/dL (9.8-20.1); Bilirubin, Total 0.8 mg/dL (0.2-1.2); Calc. Creatinine Clearance 29 mL/min (70-130); Calcium 8.1 mg/dL (7.8-10.44); Carbon Dioxide 31 mmol/L (23-31); Chloride 104 mmol/L (98-107); Estimated GFR 36; Globulin 2.5 g/dL (2.4-3.5); Glucose 121 mg/dL (83-110); Potassium 4.3 mmol/L (3.5-5.1); Protein, Total 4.6 g/dL (5.8-8.1); Sodium 142 mmol/L (136-145)
[2023-12-15] MEDS: Levothyroxine Sodium 100 MCG TAB PO SCH (05:59)
[2023-12-15 06:19] LABS: Hematocrit 27.8 % (36.0-47.0); Hemoglobin 8.6 g/dL (12.0-16.0); Mean Corpuscular HGB CONC 30.9 g/dL (32.0-36.0); Mean Corpuscular Hemoglobin 32.5 pg (27.0-31.0); Mean Corpuscular Volume 104.9 fL (78.0-98.0); Mean Platelet Volume 10.5 fL (7.4-10.4); Platelet Count 158 10x3/uL (130-400); RBC Distribution Width 15.2 % (11.5-14.5); Red Blood Cell (RBC) Count 2.65 mill/uL (4.20-5.40)
[2023-12-15 07:49] LABS: Band 33 % (5-11); Lymphocytes 7 % (21-51); Macrocytosis SLIGHT = 6-15 cells HPF (0-5); Monocytes 6 % (0-10); Neutrophil 54 % (42-75); Platelet Adequacy Comment Platelets Normal
[2023-12-15] MEDS: Apixaban 5 MG TAB PO SCH (08:07)
[2023-12-15] MEDS: Famotidine 20 MG TAB PO SCH (08:07)
[2023-12-15] MEDS ORDERED: Vancomycin 1 GM in Premix 1 BAG IVPB SCH (09:00)
[2023-12-15] MEDS ORDERED: Heparin 5,000 UNITS/ML VIAL SC SCH (09:00)
[2023-12-15] MEDS: Hydrocortisone Sod Succ/PF 100 mg/2 ml Vial IVP SCH ×2 (09:28→10:40)
[2023-12-15] MEDS: fentaNYL 50 mcg/mL 1 mL Vial SLOW IVP PRN ×2 (09:50→17:53)
[2023-12-15 11:32] VITALS: BP 90/52; TEMP 97.6
[2023-12-15] MEDS: Lorazepam 2 MG/ML VIAL SLOW IVP PRN (12:08)
== END 2023-12-15 18:08 | disposition hospice, inpatient (51) | DRG 871 ==
LOC: ERS 18:35 → T4-B 22:26
PROVIDERS: ADMIT Internal Medicine; ATTEND Family Medicine
DX: A41.9 Sepsis, unspecified organism (principal); J18.9 Pneumonia, unspecified organism; K65.9 Peritonitis, unspecified; E27.1 Primary adrenocortical insufficiency; N39.0 Urinary tract infection, site not specified; K57.20 Diverticulitis of large intestine with perforation and abscess without bleeding; Z51.5 Encounter for palliative care; Z66 Do not resuscitate; J84.10 Pulmonary fibrosis, unspecified; E03.9 Hypothyroidism, unspecified; Z79.52 Long term (current) use of systemic steroids; Z79.01 Long term (current) use of anticoagulants; Z86.711 Personal history of pulmonary embolism; Z86.718 Personal history of other venous thrombosis and embolism; Z79.899 Other long term (current) drug therapy; Z88.2 Allergy status to sulfonamides; Z99.81 Dependence on supplemental oxygen; Z88.1 Allergy status to other antibiotic agents; Z91.013 Allergy to seafood
CPT/HCPCS: 36415; 51701; 70450; 71045; 74177; 80053; 81001; 83605; 84145; 84484; 85025; 87040; 87086; 87804; 93005; 96361; 96365; 96374; 96375; 96376; J0692; J2060; J2272; J2470; J2543; J3010; J3370; J3480; Q9967

== ENCOUNTER 2023-12-15 18:29 | Inpatient (IN) | payer OTHER ==
[2023-12-15] MEDS ORDERED: fentaNYL 50 mcg/mL 1 mL Vial SLOW IVP PRN (19:13)
[2023-12-15] MEDS: fentaNYL 50 mcg/mL 1 mL Vial SLOW IVP SCH (21:12)
[2023-12-15] MEDS: Lorazepam 2 MG/ML VIAL SLOW IVP SCH (21:13)
[2023-12-16 07:48] VITALS: TEMP 97.4
[2023-12-16] MEDS: Lorazepam 2 MG/ML VIAL SLOW IVP PRN (16:09)
[2023-12-16 16:20] VITALS: BP 56/35
[2023-12-16] MEDS ORDERED: Morphine 4 MG/ML VIAL SLOW IVP PRN (16:23)
[2023-12-16] MEDS: Morphine 4 MG/ML VIAL SLOW IVP SCH (16:47)
== END 2023-12-16 19:28 | disposition expired | DRG 951 ==
LOC: T4-B 18:29
PROVIDERS: ADMIT Family Medicine; ATTEND Family Medicine
DX: Z51.5 Encounter for palliative care (principal); J18.9 Pneumonia, unspecified organism; A41.9 Sepsis, unspecified organism; E87.20 Acidosis, unspecified; N39.0 Urinary tract infection, site not specified; E27.1 Primary adrenocortical insufficiency; Z66 Do not resuscitate; E03.9 Hypothyroidism, unspecified; J84.10 Pulmonary fibrosis, unspecified; Y95 Nosocomial condition; D64.9 Anemia, unspecified; Z88.1 Allergy status to other antibiotic agents; Z79.01 Long term (current) use of anticoagulants; Z91.013 Allergy to seafood; Z88.2 Allergy status to sulfonamides; Z91.09 Other allergy status, other than to drugs and biological substances; Z79.890 Hormone replacement therapy; Z86.718 Personal history of other venous thrombosis and embolism; Z86.711 Personal history of pulmonary embolism
CPT/HCPCS: J2060; J2272; J3010